=== PATIENT | female | born 1940 | race Caucasian/White ===

== ENCOUNTER → 2017-10-28 | Outpatient (CLI) | payer MEDICARE, OTHER ==
[~2017-10-28] MED LIST: ACET500 PO; AMLO5; AMPDEX10 PO; AMPHETAMINE; ANAS1 PO; AZIT250 PO; Anastrozole1 GM PO; Augmentin 875-1 EACH PO; BUPR100; BUPR100 PO; CLIN300 PO; CLON.1 PO; CLON.2; CLON.2 PO; CYCL10 PO; DIVA125EC; DIVA250EC PO; Duoneb 2.5-0.5 M3 ML INH; FLUO20; Felodipine ER10 MG PO; Fentanyl1 EAC4 TD; HYDACE5 PO; HYDCHL25; HYOS0.375T PO; IBUP400 PO; KETO10 PO; LEVSOD150 PO; LEVSOD200 PO; LEVSOD75 PO; LEVSOD88 PO; LOSA50 PO; LOSARTAN POTAS100 MG PO; MEPE50 PO; MIRT15 PO; MIRT30ST MM; NAPR500EC PO; NEOSPORIN ANT14.2 GM TOP; PROM25 PO; Prozac20 MG PO; RXCYCL10 PO; RXTRAM50 PO; SOLI5; SOLI5 PO; STOOL SOFTENER100 MG; TOLT2ER; TRAM50 PO; Vesicare10 MG PO; Vibramycin100 MG PO
[2017-10-28 12:40] LABS: BASOPHILS ABSOLUTE AUTO 0.06 K/mm3 (0.00-0.23); BASOPHILS PERCENT AUTO 0 % (0-2); EOSINOPHILS ABSOLUTE AUTO 0.14 K/mm3 (0.00-0.68); EOSINOPHILS PERCENT AUTO 1 % (0-6); Hematocrit 40.4 % (33.0-51.0); Hemoglobin 13.5 g/dL (11.5-16.0); IMMATURE GRAN ABSOLUTE AUTO 0.05 K/mm3 (0.00-0.10); IMMATURE GRAN PERCENT AUTO 0 % (0-1); LYMPHOCYTES ABSOLUTE AUTO 2.34 K/mm3 (0.84-5.20); LYMPHOCYTES PERCENT AUTO 17 % (21-46); MONOCYTES ABSOLUTE AUTO 1.27 K/mm3 (0.16-1.47); MONOCYTES PERCENT AUTO 9 % (4-13); Mean Corpuscular HGB 30.8 pg (26.0-34.0); Mean Corpuscular HGB Conc 33.4 g/dL (31.5-36.5); Mean Corpuscular Volume 92 fL (80-100); Mean Platelet Volume 9.6 fL (9.1-12.4); NEUTROPHILS ABSOLUTE AUTO 9.75 K/mm3 (1.96-9.15); NEUTROPHILS PERCENT AUTO 72 % (41-73); Platelet Count 363 K/mm3 (150-400); RDW Coefficient Variation 13.1 % (11.7-14.2); RDW Standard Deviation 44.2 fL (35.1-46.3); Red Blood Cell Count 4.39 M/mm3 (3.80-5.20); White Blood Cell Count 13.61 K/mm3 (4.00-11.30)
[2017-10-28 12:49] LABS: Albumin, Blood 4.2 g/dL (3.4-5.0); Albumin/Globulin Ratio 1.1 (0.8-1.8); Bilirubin, Total 0.5 mg/dL (0.1-1.0); Bun/Creatinine Ratio 22.9 (12.0-20.0); Calcium, Blood 10.1 mg/dL (8.5-10.1); Creatinine, Blood 1.05 mg/dL (0.40-1.00); Globulin, Blood 3.7 g/dL (2.2-4.0); Potassium, Blood 5.1 mmol/L (3.5-5.5); Total Protein, Blood 7.9 g/dL (6.4-8.2)
== END ==
LOC: LAB SHORT 12:32 → LAB EV 12:32
PROVIDERS: General Practice
DX: J44.9 Chronic obstructive pulmonary disease, unspecified (principal)
CPT/HCPCS: 80053; 85025

== ENCOUNTER 2017-11-25 20:42 | Emergency (ER) | payer MEDICARE, OTHER ==
[~2017-11-25] VITALS: Ht 160 cm; Wt 84.4 kg
[2017-11-25 21:16] LABS: BASOPHILS ABSOLUTE AUTO 0.07 K/mm3 (0.00-0.23); BASOPHILS PERCENT AUTO 1 % (0-2); EOSINOPHILS ABSOLUTE AUTO 0.02 K/mm3 (0.00-0.68); EOSINOPHILS PERCENT AUTO 0 % (0-6); Hematocrit 38.1 % (33.0-51.0); Hemoglobin 12.3 g/dL (11.5-16.0); IMMATURE GRAN PERCENT AUTO 1 % (0-1); LYMPHOCYTES ABSOLUTE AUTO 2.49 K/mm3 (0.84-5.20); LYMPHOCYTES PERCENT AUTO 17 % (21-46); MONOCYTES PERCENT AUTO 16 % (4-13); Mean Corpuscular HGB 30.8 pg (26.0-34.0); Mean Corpuscular HGB Conc 32.3 g/dL (31.5-36.5); Mean Corpuscular Volume 95 fL (80-100); Mean Platelet Volume 9.7 fL (9.1-12.4); NEUTROPHILS PERCENT AUTO 67 % (41-73); Platelet Count 253 K/mm3 (150-400); RDW Coefficient Variation 13.6 % (11.7-14.2); RDW Standard Deviation 48.1 fL (35.1-46.3); White Blood Cell Count 14.88 K/mm3 (4.00-11.30)
[2017-11-25 21:35] LABS: Alanine Aminotransfer (ALT/SGP 36 U/L (12-78); Albumin, Blood 3.8 g/dL (3.4-5.0); Albumin/Globulin Ratio 0.9 (0.8-1.8); Alk Phos 94 U/L (50-136); Anion Gap 10 mmol/L (6-16); Aspartate Aminotrans (AST/SGOT 30 U/L (12-37); Bilirubin, Total 0.6 mg/dL (0.1-1.0); Blood Urea Nitrogen 23 mg/dL (8-24); Bun/Creatinine Ratio 23.2 (12.0-20.0); CO2, Blood 24 mmol/L (21-32); Calcium, Blood 9.6 mg/dL (8.5-10.1); Chloride, Blood 98 mmol/L (98-108); Creatinine, Blood 0.99 mg/dL (0.40-1.00); Globulin, Blood 4.2 g/dL (2.2-4.0); Glomerular Filtration Rate 58 (60-); Glucose, Blood 90 mg/dL (70-99); Potassium, Blood 4.4 mmol/L (3.5-5.5); Sodium, Blood 132 mmol/L (136-145); Troponin I <0.015 ng/mL (0.000-0.040)
[2017-11-26] MEDS ORDERED: Zithromax250 MG PO (00:43)
[2017-11-26] MEDS ORDERED: Prednisone20 MG PO (00:43)
== END 2017-11-26 01:14 | disposition home or self-care (01) ==
LOC: ER 20:42
PROVIDERS: Emergency Medicine
DX: J18.9 Pneumonia, unspecified organism (principal); I10 Essential (primary) hypertension; Z88.0 Allergy status to penicillin; Z88.5 Allergy status to narcotic agent; Z79.899 Other long term (current) drug therapy; Z87.891 Personal history of nicotine dependence
CPT/HCPCS: 36415; 71046; 80053; 83880; 84484; 85025; 93005; 93010; 94640; J0456; J0696; J2930; J7030; J7050

== ENCOUNTER → 2018-06-13 | Outpatient (CLI) | payer MEDICARE, OTHER ==
[~2018-06-13] MED LIST changes: +PRED10 PO; +Prednisone20 MG PO; +Zithromax250 MG PO
[2018-06-20 15:08] LABS: FENTANYL Positive (.); FENTANYL CONFIRM 7742 pg/mL (Cutoff=500); FENTANYL/NORFENTANYL Positive (.); NORFENTANYL Positive (.); NORFENTANYL CONFIRM >90000 pg/mL (Cutoff=500)
== END | disposition home or self-care (01) ==
LOC: LAB SHORT 15:00 → LAB EV 15:00
PROVIDERS: Nurse Practitioner Family
DX: G89.4 Chronic pain syndrome (principal); Z79.899 Other long term (current) drug therapy
CPT/HCPCS: G0480

== ENCOUNTER 2020-08-08 14:37 | Emergency (ER) | payer MEDICARE, BC ==
[~2020-08-08] VITALS: Ht 162.6 cm; Wt 68.8 kg
[2020-08-08 15:05] LABS: Calcium, Ionized (POC) 1.25 mmol/L (1.10-1.46); Chloride (POC) 104 mmol/L (98-108); Creatinine (POC) 1.1 mg/dL (0.6-1.0); Glucose (ISTAT POC) 86 mg/dL (70-99); Hemoglobin (POC) 13.9 g/dL (12.0-16.0); Potassium (POC) 4.4 mmol/L (3.5-5.5); Sodium (POC) 140 mmol/L (135-148); Total CO2 (POC) 28 mmol/L (21-32)
[2020-08-08] MEDS ORDERED: METOPROLOL SUCC25 MG PO (15:18)
[2020-08-08] MEDS ORDERED: TRAM50 PO (15:18)
== END 2020-08-08 16:20 | disposition short-term general hospital (02) ==
LOC: ER 14:37
PROVIDERS: Emergency Medicine
DX: I24.9 Acute ischemic heart disease, unspecified (principal); I16.0 Hypertensive urgency; I10 Essential (primary) hypertension; Z88.0 Allergy status to penicillin; Z88.5 Allergy status to narcotic agent; Z79.899 Other long term (current) drug therapy; Z87.891 Personal history of nicotine dependence
CPT/HCPCS: 36415; 80047; 85014; 93005; 93010; 96374; 99285-25; A9270; J1644; J2060; J7030; J7050

== ENCOUNTER 2020-08-12 05:06 | Emergency (ER) | payer MEDICARE, BC ==
[~2020-08-12] VITALS: Ht 162.6 cm; Wt 59.0 kg
[~2020-08-12 05:06] MED LIST changes: +METOPROLOL SUCC25 MG PO
[2020-08-12 05:36] LABS: BASOPHILS ABSOLUTE AUTO 0.05 K/mm3 (0.00-0.23); BASOPHILS PERCENT AUTO 1 % (0-2); EOSINOPHILS ABSOLUTE AUTO 0.33 K/mm3 (0.00-0.68); EOSINOPHILS PERCENT AUTO 4 % (0-6); Hematocrit 39.6 % (33.0-51.0); Hemoglobin 13.4 g/dL (11.5-16.0); IMMATURE GRAN ABSOLUTE AUTO 0.03 K/mm3 (0.00-0.10); IMMATURE GRAN PERCENT AUTO 0 % (0-1); LYMPHOCYTES ABSOLUTE AUTO 2.21 K/mm3 (0.84-5.20); LYMPHOCYTES PERCENT AUTO 26 % (21-46); MONOCYTES ABSOLUTE AUTO 0.97 K/mm3 (0.16-1.47); MONOCYTES PERCENT AUTO 11 % (4-13); Mean Corpuscular HGB 32.5 pg (26.0-34.0); Mean Corpuscular HGB Conc 33.8 g/dL (31.5-36.5); Mean Corpuscular Volume 96 fL (80-100); Mean Platelet Volume 9.9 fL (9.1-12.4); NEUTROPHILS ABSOLUTE AUTO 4.97 K/mm3 (1.96-9.15); NEUTROPHILS PERCENT AUTO 58 % (41-73); Platelet Count 340 K/mm3 (150-400); RDW Coefficient Variation 12.8 % (11.7-14.2); RDW Standard Deviation 45.7 fL (35.1-46.3); Red Blood Cell Count 4.12 M/mm3 (3.80-5.20); White Blood Cell Count 8.56 K/mm3 (4.00-11.30)
[2020-08-12] MEDS ORDERED: Aspir 8181 MG PO (05:50)
[2020-08-12] MEDS ORDERED: ANASTROZOLE1 M2 PO (05:50)
[2020-08-12] MEDS ORDERED: ATOR80 PO (05:51)
[2020-08-12] MEDS ORDERED: LEVSOD100 PO (05:51)
[2020-08-12] MEDS ORDERED: CLOP75 PO (05:51)
[2020-08-12] MEDS ORDERED: NYSTRIT TOP (05:52)
[2020-08-12] MEDS ORDERED: Triamcinolone A15 G3 TOP (05:53)
[2020-08-12 06:18] LABS: Albumin, Blood 3.4 g/dL (3.4-5.0); Albumin/Globulin Ratio 0.8 (0.8-1.8); Bilirubin, Total 0.4 mg/dL (0.1-1.0); Bun/Creatinine Ratio 25.2 (12.0-20.0); Calcium, Blood 9.9 mg/dL (8.5-10.1); Creatinine, Blood 1.15 mg/dL (0.40-1.00); Globulin, Blood 4.4 g/dL (2.2-4.0); Potassium, Blood 4.8 mmol/L (3.5-5.5); Total Protein, Blood 7.8 g/dL (6.4-8.2)
[2020-08-12 06:25] LABS: Troponin I 6.14 ng/mL (0.000-0.040)
[2020-08-12] MEDS ORDERED: Nitrostat0.4 MG SL (08:45)
[2020-08-12] MEDS ORDERED: Isosorbide Mono30 MG PO (08:45)
== END 2020-08-12 09:12 | disposition home or self-care (01) ==
LOC: ER 05:06
PROVIDERS: Emergency Medicine
DX: R07.9 Chest pain, unspecified (principal); I25.10 Atherosclerotic heart disease of native coronary artery without angina pectoris; Z79.82 Long term (current) use of aspirin; Z79.02 Long term (current) use of antithrombotics/antiplatelets; Z79.899 Other long term (current) drug therapy
CPT/HCPCS: 36415; 71045; 80053; 83690; 84484; 85025; 93005; 93010; 99285-25; A9270

== ENCOUNTER → 2020-12-25 | Outpatient (CLI) | payer MEDICARE, BC ==
[~2020-12-25] MED LIST changes: +ANASTROZOLE1 M2 PO; +ATOR80 PO; +Aspir 8181 MG PO; +CLOP75 PO; +Isosorbide Mono30 MG PO; +LEVSOD100 PO; +NYSTRIT TOP; +Nitrostat0.4 MG SL; +Triamcinolone A15 G3 TOP
[2020-12-25 12:41] LABS: BASOPHILS ABSOLUTE AUTO 0.06 K/mm3 (0.00-0.23); BASOPHILS PERCENT AUTO 1 % (0-2); EOSINOPHILS ABSOLUTE AUTO 0.27 K/mm3 (0.00-0.68); EOSINOPHILS PERCENT AUTO 4 % (0-6); Hematocrit 42.7 % (33.0-51.0); Hemoglobin 14.4 g/dL (11.5-16.0); IMMATURE GRAN ABSOLUTE AUTO 0.02 K/mm3 (0.00-0.10); IMMATURE GRAN PERCENT AUTO 0 % (0-1); LYMPHOCYTES ABSOLUTE AUTO 2.17 K/mm3 (0.84-5.20); LYMPHOCYTES PERCENT AUTO 35 % (21-46); MONOCYTES ABSOLUTE AUTO 0.64 K/mm3 (0.16-1.47); MONOCYTES PERCENT AUTO 10 % (4-13); Mean Corpuscular HGB 32.3 pg (26.0-34.0); Mean Corpuscular HGB Conc 33.7 g/dL (31.5-36.5); Mean Corpuscular Volume 96 fL (80-100); Mean Platelet Volume 10.1 fL (9.1-12.4); NEUTROPHILS ABSOLUTE AUTO 2.98 K/mm3 (1.96-9.15); NEUTROPHILS PERCENT AUTO 49 % (41-73); Platelet Count 334 K/mm3 (150-400); RDW Coefficient Variation 12.9 % (11.7-14.2); RDW Standard Deviation 45.5 fL (35.1-46.3); Red Blood Cell Count 4.46 M/mm3 (3.80-5.20); White Blood Cell Count 6.14 K/mm3 (4.00-11.30)
[2020-12-25 13:03] LABS: Alanine Aminotransfer (ALT/SGP 24 U/L (12-78); Albumin, Blood 4.1 g/dL (3.4-5.0); Alk Phos 135 U/L (40-126); Anion Gap 12 mmol/L (6-16); Aspartate Aminotrans (AST/SGOT 27 U/L (12-37); Bilirubin, Total 0.4 mg/dL (0.1-1.0); Blood Urea Nitrogen 30 mg/dL (8-24); Bun/Creatinine Ratio 21.9 (12.0-20.0); CO2, Blood 25 mmol/L (21-32); CPK Creatine Kinase 97 U/L (26-192); Calcium, Blood 9.8 mg/dL (8.5-10.1); Chloride, Blood 105 mmol/L (98-108); Creatinine, Blood 1.37 mg/dL (0.40-1.00); Free Thyroxine 1.69 ng/dL (0.70-1.60); Globulin, Blood 4.1 g/dL (2.2-4.0); Glomerular Filtration Rate 37 (60-); Glucose, Blood 96 mg/dL (70-99); Potassium, Blood 4.9 mmol/L (3.5-5.5); Sodium, Blood 142 mmol/L (136-145); Thyroid Stimulating Hormone 2.515 uIU/mL (0.360-4.800); Total Protein, Blood 8.2 g/dL (6.4-8.2)
[2020-12-25 13:04] LABS: Troponin I <0.017 ng/mL (0.000-0.040)
== END | disposition home or self-care (01) ==
LOC: LAB 12:32 → LAB EV 12:32 → LAB SHORT 12:32
PROVIDERS: General Practice
DX: I25.110 Atherosclerotic heart disease of native coronary artery with unstable angina pectoris (principal); R53.81 Other malaise
CPT/HCPCS: 80053; 82550; 84439; 84443; 84484; 85025

== ENCOUNTER 2021-11-01 20:36 | Observation (INO) | payer MEDICARE, BC ==
[~2021-11-01] VITALS: Ht 162.6 cm; Wt 49.2 kg
[~2021-11-01 20:36] MED LIST changes: +FURO20 PO; +KETOROLAC TROMET5 M3 OP; +POLYMYXIN B-TMP10 ML LEFTEYE; +POTA10T PO; +PRED FORTE5 M1 LEFTEYE; +Ventolin/Prove6.7 GM INH
[2021-11-01 21:31] LABS: BASOPHILS ABSOLUTE AUTO 0.05 K/mm3 (0.00-0.23); BASOPHILS PERCENT AUTO 1 % (0-2); EOSINOPHILS ABSOLUTE AUTO 0.25 K/mm3 (0.00-0.68); EOSINOPHILS PERCENT AUTO 4 % (0-6); Hematocrit 43.5 % (33.0-51.0); Hemoglobin 14.5 g/dL (11.5-16.0); IMMATURE GRAN ABSOLUTE AUTO 0.02 K/mm3 (0.00-0.10); IMMATURE GRAN PERCENT AUTO 0 % (0-1); LYMPHOCYTES ABSOLUTE AUTO 2.01 K/mm3 (0.84-5.20); LYMPHOCYTES PERCENT AUTO 29 % (21-46); MONOCYTES PERCENT AUTO 14 % (4-13); Mean Corpuscular HGB Conc 33.3 g/dL (31.5-36.5); Mean Corpuscular Volume 99 fL (80-100); Mean Platelet Volume 10.1 fL (9.1-12.4); NEUTROPHILS ABSOLUTE AUTO 3.61 K/mm3 (1.96-9.15); NEUTROPHILS PERCENT AUTO 52 % (41-73); Platelet Count 375 K/mm3 (150-400); RDW Coefficient Variation 12.3 % (11.7-14.2); RDW Standard Deviation 44.8 fL (35.1-46.3); Red Blood Cell Count 4.39 M/mm3 (3.80-5.20); White Blood Cell Count 6.94 K/mm3 (4.00-11.30)
[2021-11-01 21:54] LABS: Alanine Aminotransfer (ALT/SGP 12 U/L (12-78); Albumin, Blood 3.7 g/dL (3.4-5.0); Albumin/Globulin Ratio 0.8 (0.8-1.8); Alk Phos 101 U/L (50-136); Anion Gap 8 mmol/L (6-16); Aspartate Aminotrans (AST/SGOT 21 U/L (12-37); Bilirubin, Total 0.3 mg/dL (0.1-1.0); Blood Urea Nitrogen 42 mg/dL (8-24); Bun/Creatinine Ratio 36.5 (12.0-20.0); CO2, Blood 27 mmol/L (21-32); Calcium, Blood 10.1 mg/dL (8.5-10.1); Chloride, Blood 107 mmol/L (98-108); Creatinine, Blood 1.15 mg/dL (0.40-1.00); Globulin, Blood 4.4 g/dL (2.2-4.0); Glomerular Filtration Rate 48 (60-); Glucose, Blood 98 mg/dL (70-99); Potassium, Blood 4.3 mmol/L (3.5-5.5); Sodium, Blood 142 mmol/L (136-145); Total Protein, Blood 8.1 g/dL (6.4-8.2)
--- NOTE | 2021-11-02 00:38 | NUR ---
transfer report from Eliza FUNK RN on 81 year old Female DC from [facility] for CHF 4 days ago. who comes to ER with SOB & edema elevated troponin & CAD, PVD, DDD. Await admission
[2021-11-02] MEDS ORDERED: FENTANYL PATCH (00:52)
[2021-11-02 01:13] LABS: CHOL/HDL RATIO 3.5; Cholesterol 223 mg/dL (50-200); Free Thyroxine 1.59 ng/dL (0.70-1.60); HDL Cholesterol 64 mg/dL (>39); Low Density Lipoprotein Chol 129 mg/dL (0-110); Triglycerides 148 mg/dL (30-160); Very Low Density Lipoprot Chol 29 mg/dL (6-32)
[2021-11-02] MEDS ORDERED: ISOSORBIDE MONO30 MG PO (02:30)
[2021-11-02] MEDS ORDERED: PRED FORTE5 M1 BOTHEYES (02:31)
[2021-11-02] MEDS ORDERED: KETOROLAC TROMET5 M3 LEFTEYE (02:33)
[2021-11-02 05:14] LABS: BASOPHILS ABSOLUTE AUTO 0.05 K/mm3 (0.00-0.23); BASOPHILS PERCENT AUTO 1 % (0-2); EOSINOPHILS ABSOLUTE AUTO 0.28 K/mm3 (0.00-0.68); EOSINOPHILS PERCENT AUTO 3 % (0-6); Hematocrit 43.8 % (33.0-51.0); Hemoglobin 14.4 g/dL (11.5-16.0); IMMATURE GRAN ABSOLUTE AUTO 0.02 K/mm3 (0.00-0.10); IMMATURE GRAN PERCENT AUTO 0 % (0-1); LYMPHOCYTES ABSOLUTE AUTO 1.72 K/mm3 (0.84-5.20); LYMPHOCYTES PERCENT AUTO 20 % (21-46); MONOCYTES ABSOLUTE AUTO 1.21 K/mm3 (0.16-1.47); MONOCYTES PERCENT AUTO 14 % (4-13); Mean Corpuscular HGB 32.7 pg (26.0-34.0); Mean Corpuscular HGB Conc 32.9 g/dL (31.5-36.5); Mean Corpuscular Volume 100 fL (80-100); Mean Platelet Volume 10.1 fL (9.1-12.4); NEUTROPHILS ABSOLUTE AUTO 5.33 K/mm3 (1.96-9.15); NEUTROPHILS PERCENT AUTO 62 % (41-73); Platelet Count 342 K/mm3 (150-400); RDW Coefficient Variation 12.2 % (11.7-14.2); RDW Standard Deviation 44.5 fL (35.1-46.3); White Blood Cell Count 8.61 K/mm3 (4.00-11.30)
[2021-11-02 06:00] LABS: Albumin, Blood 3.4 g/dL (3.4-5.0); Albumin/Globulin Ratio 0.8 (0.8-1.8); Bilirubin, Total 0.4 mg/dL (0.1-1.0); Bun/Creatinine Ratio 33.6 (12.0-20.0); Creatinine, Blood 1.16 mg/dL (0.40-1.00); Globulin, Blood 4.1 g/dL (2.2-4.0); Potassium, Blood 3.9 mmol/L (3.5-5.5); Total Protein, Blood 7.5 g/dL (6.4-8.2)
--- NOTE | 2021-11-02 06:48 | NUR ---
81 year old Female with hx CAD with cardiac stent placed about 3 years ago per PT is poor historian with variable recall of health history. Elevated BP with multiple antihypertensives & on tele monitoring NSR. PT had CO bilat jaw pain requests nitro & MD Santiago Jimenez updated. MD declined nitro & PT said pain in jaws resolved. BP finally normalized & PT rested. Recent lt eye cataract removal with PT to ask Spouse to bring in current rx. Continue to assess & educate on CHF.
--- NOTE | 2021-11-02 08:33 | NUR ---
Echocardiogram completed.
[2021-11-02] MEDS ORDERED: ABILIFY MYCITE20 M2 PO (14:22)
[2021-11-02] MEDS ORDERED: ATORVASTATIN CA80 M1 PO (14:23)
[2021-11-02] MEDS ORDERED: BUPROPION HCL200 M2 PO (14:24)
[2021-11-02] MEDS ORDERED: COREG25 MG PO (14:25)
[2021-11-02] MEDS ORDERED: DEPAKOTE500 M1 PO (14:27)
[2021-11-02] MEDS ORDERED: FENTANYL1 EA12 TOP (14:28)
[2021-11-02] MEDS ORDERED: FURO20 PO (14:29)
[2021-11-02] MEDS ORDERED: EUTHYROX100 MCG PO (14:30)
[2021-11-02] MEDS ORDERED: LOSARTAN POTAS100 M1 PO (14:31)
[2021-11-02] MEDS ORDERED: METO25ER PO (14:32)
[2021-11-02] MEDS ORDERED: NYAMYC15 G1 TOP (14:34)
[2021-11-02] MEDS ORDERED: KLOR-CON 1010 ME1 PO (14:35)
--- NOTE | 2021-11-02 15:54 | NUR ---
PATIENT D/C'D HOME WITH HOME HEALTH. DC INSTRUCTIONS AND EDUCATION DISCUSSED WITH PATIENT AND HER AND COPY PROVIDED. HOME HEALTH WILL CONTACT PATIENT FOR APPOINTMENT. F/U APPOINTMENT WITH PCP WAS MADE. PATIENT DENIES ANY FURTHER QUESTIONS OR CONCERNS.
== END 2021-11-02 15:54 | disposition home health service (06) ==
LOC: ER 20:36 → MEDS 20:37
PROVIDERS: Physician Assistant; Student in an Organized Health Care Education/Training Program; ADMIT Internal Medicine
DX: I13.0 Hypertensive heart and chronic kidney disease with heart failure and stage 1 through stage 4 chronic kidney disease, or unspecified chronic kidney disease (principal); I50.9 Heart failure, unspecified; E03.9 Hypothyroidism, unspecified; I25.2 Old myocardial infarction; I25.10 Atherosclerotic heart disease of native coronary artery without angina pectoris; Z96.653 Presence of artificial knee joint, bilateral; Z79.82 Long term (current) use of aspirin; Z88.0 Allergy status to penicillin; Z88.5 Allergy status to narcotic agent; Z95.5 Presence of coronary angioplasty implant and graft; Z79.01 Long term (current) use of anticoagulants; Z87.891 Personal history of nicotine dependence; Z66 Do not resuscitate; N18.9 Chronic kidney disease, unspecified; J42 Unspecified chronic bronchitis; Z98.1 Arthrodesis status; I08.3 Combined rheumatic disorders of mitral, aortic and tricuspid valves
CPT/HCPCS: 36415; 71045; 80053; 80061; 83880; 84439; 84443; 84484; 85025; 93005; 93010; 93306; 97110; 97116; 97162; 99285-25; A9270; G0378; J0360; J1650; J1940

== ENCOUNTER 2021-11-07 10:05 | Emergency (ER) | payer MEDICARE, BC ==
[~2021-11-07] VITALS: Ht 162.6 cm; Wt 66.7 kg
[~2021-11-07 10:05] MED LIST changes: +ABILIFY MYCITE20 M2 PO; +ATORVASTATIN CA80 M1 PO; +BUPROPION HCL200 M2 PO; +COREG25 MG PO; +DEPAKOTE500 M1 PO; +EUTHYROX100 MCG PO; +FENTANYL PATCH; +FENTANYL1 EA12 TOP; +ISOSORBIDE MONO30 MG PO; +KETOROLAC TROMET5 M3 LEFTEYE; +KLOR-CON 1010 ME1 PO; +LOSARTAN POTAS100 M1 PO; +METO25ER PO; +NYAMYC15 G1 TOP; +PRED FORTE5 M1 BOTHEYES
[2021-11-07 10:59] LABS: BASOPHILS ABSOLUTE AUTO 0.07 K/mm3 (0.00-0.23); BASOPHILS PERCENT AUTO 1 % (0-2); EOSINOPHILS ABSOLUTE AUTO 0.27 K/mm3 (0.00-0.68); EOSINOPHILS PERCENT AUTO 3 % (0-6); Hemoglobin 14.1 g/dL (11.5-16.0); IMMATURE GRAN ABSOLUTE AUTO 0.03 K/mm3 (0.00-0.10); IMMATURE GRAN PERCENT AUTO 0 % (0-1); LYMPHOCYTES ABSOLUTE AUTO 2.07 K/mm3 (0.84-5.20); LYMPHOCYTES PERCENT AUTO 24 % (21-46); MONOCYTES ABSOLUTE AUTO 1.07 K/mm3 (0.16-1.47); MONOCYTES PERCENT AUTO 13 % (4-13); Mean Corpuscular HGB 33.6 pg (26.0-34.0); Mean Corpuscular HGB Conc 31.3 g/dL (31.5-36.5); Mean Corpuscular Volume 107 fL (80-100); Mean Platelet Volume 10.8 fL (9.1-12.4); NEUTROPHILS ABSOLUTE AUTO 5.08 K/mm3 (1.96-9.15); NEUTROPHILS PERCENT AUTO 59 % (41-73); Platelet Count 276 K/mm3 (150-400); RDW Standard Deviation 47.6 fL (35.1-46.3); White Blood Cell Count 8.59 K/mm3 (4.00-11.30)
[2021-11-07 11:18] LABS: Albumin, Blood 3.3 g/dL (3.4-5.0); Albumin/Globulin Ratio 0.9 (0.8-1.8); Bilirubin, Total 0.4 mg/dL (0.1-1.0); Bun/Creatinine Ratio 27.8 (12.0-20.0); Calcium, Blood 9.6 mg/dL (8.5-10.1); Creatinine, Blood 1.15 mg/dL (0.40-1.00); Globulin, Blood 3.8 g/dL (2.2-4.0); Potassium, Blood 5.1 mmol/L (3.5-5.5); Total Protein, Blood 7.1 g/dL (6.4-8.2)
== END 2021-11-07 13:41 | disposition home or self-care (01) ==
LOC: ER 10:05
PROVIDERS: Emergency Medicine
DX: R55 Syncope and collapse (principal); F41.9 Anxiety disorder, unspecified; I11.0 Hypertensive heart disease with heart failure; I50.9 Heart failure, unspecified; J44.9 Chronic obstructive pulmonary disease, unspecified; I25.2 Old myocardial infarction; Z88.0 Allergy status to penicillin; Z88.5 Allergy status to narcotic agent; Z79.899 Other long term (current) drug therapy
CPT/HCPCS: 71045; 80053; 82947; 84484; 85025; 93005; 93010

== ENCOUNTER 2021-12-06 16:04 | Inpatient (IN) | payer MEDICARE, BC ==
[~2021-12-06] VITALS: Ht 162.6 cm; Wt 63.9 kg
[2021-12-06 22:45] LABS: BASOPHILS ABSOLUTE AUTO 0.07 K/mm3 (0.00-0.23); BASOPHILS PERCENT AUTO 1 % (0-2); EOSINOPHILS ABSOLUTE AUTO 0.46 K/mm3 (0.00-0.68); EOSINOPHILS PERCENT AUTO 5 % (0-6); Hemoglobin 13.9 g/dL (11.5-16.0); IMMATURE GRAN ABSOLUTE AUTO 0.03 K/mm3 (0.00-0.10); IMMATURE GRAN PERCENT AUTO 0 % (0-1); LYMPHOCYTES ABSOLUTE AUTO 2.27 K/mm3 (0.84-5.20); LYMPHOCYTES PERCENT AUTO 26 % (21-46); MONOCYTES ABSOLUTE AUTO 0.88 K/mm3 (0.16-1.47); MONOCYTES PERCENT AUTO 10 % (4-13); Mean Corpuscular HGB 32.9 pg (26.0-34.0); Mean Corpuscular HGB Conc 33.1 g/dL (31.5-36.5); Mean Corpuscular Volume 100 fL (80-100); Mean Platelet Volume 10.1 fL (9.1-12.4); NEUTROPHILS ABSOLUTE AUTO 5.03 K/mm3 (1.96-9.15); NEUTROPHILS PERCENT AUTO 58 % (41-73); Platelet Count 238 K/mm3 (150-400); RDW Coefficient Variation 12.2 % (11.7-14.2); RDW Standard Deviation 44.6 fL (35.1-46.3); Red Blood Cell Count 4.22 M/mm3 (3.80-5.20); White Blood Cell Count 8.74 K/mm3 (4.00-11.30)
[2021-12-06 23:12] LABS: Bun/Creatinine Ratio 20.2 (12.0-20.0); Calcium, Blood 9.6 mg/dL (8.5-10.1); Creatinine, Blood 1.63 mg/dL (0.40-1.00); Potassium, Blood 4.9 mmol/L (3.5-5.5)
[2021-12-06 23:29] LABS: Influenza A, PCR NEGATIVE (NEGATIVE); Influenza B, PCR NEGATIVE (NEGATIVE); Resp Syncytial Virus, PCR NEGATIVE (NEGATIVE); SARS-Cov-2 (COVID-19) PCR, MMC NEGATIVE (NEGATIVE)
[2021-12-07] MEDS ORDERED: CLOP75 PO (00:39)
[2021-12-07] MEDS ORDERED: FURO20 PO (00:41)
[2021-12-07] MEDS ORDERED: PRIM250 PO (00:42)
[2021-12-07] MEDS ORDERED: EZET10 PO (00:45)
[2021-12-07 05:35] LABS: BASOPHILS ABSOLUTE AUTO 0.07 K/mm3 (0.00-0.23); BASOPHILS PERCENT AUTO 1 % (0-2); EOSINOPHILS ABSOLUTE AUTO 0.45 K/mm3 (0.00-0.68); EOSINOPHILS PERCENT AUTO 6 % (0-6); Hematocrit 39.7 % (33.0-51.0); Hemoglobin 12.8 g/dL (11.5-16.0); IMMATURE GRAN ABSOLUTE AUTO 0.03 K/mm3 (0.00-0.10); IMMATURE GRAN PERCENT AUTO 0 % (0-1); LYMPHOCYTES ABSOLUTE AUTO 2.11 K/mm3 (0.84-5.20); LYMPHOCYTES PERCENT AUTO 29 % (21-46); MONOCYTES ABSOLUTE AUTO 0.88 K/mm3 (0.16-1.47); MONOCYTES PERCENT AUTO 12 % (4-13); Mean Corpuscular HGB 32.6 pg (26.0-34.0); Mean Corpuscular HGB Conc 32.2 g/dL (31.5-36.5); Mean Corpuscular Volume 101 fL (80-100); Mean Platelet Volume 10.1 fL (9.1-12.4); NEUTROPHILS ABSOLUTE AUTO 3.65 K/mm3 (1.96-9.15); NEUTROPHILS PERCENT AUTO 51 % (41-73); Platelet Count 224 K/mm3 (150-400); RDW Standard Deviation 44.5 fL (35.1-46.3); Red Blood Cell Count 3.93 M/mm3 (3.80-5.20); White Blood Cell Count 7.19 K/mm3 (4.00-11.30)
[2021-12-07 07:24] LABS: Albumin/Globulin Ratio 0.8 (0.8-1.8); Bilirubin, Total 0.2 mg/dL (0.1-1.0); Bun/Creatinine Ratio 20.6 (12.0-20.0); Calcium, Blood 9.4 mg/dL (8.5-10.1); Creatinine, Blood 1.55 mg/dL (0.40-1.00); Globulin, Blood 3.6 g/dL (2.2-4.0); Potassium, Blood 4.3 mmol/L (3.5-5.5); Total Protein, Blood 6.6 g/dL (6.4-8.2)
== END 2021-12-08 14:17 | disposition home health service (06) | DRG 554 ==
LOC: ER 16:04 → SURS 23:03
PROVIDERS: Emergency Medicine; ADMIT Internal Medicine
DX: M16.11 Unilateral primary osteoarthritis, right hip (principal); I13.0 Hypertensive heart and chronic kidney disease with heart failure and stage 1 through stage 4 chronic kidney disease, or unspecified chronic kidney disease; Z20.822 Contact with and (suspected) exposure to COVID-19; F41.9 Anxiety disorder, unspecified; J44.9 Chronic obstructive pulmonary disease, unspecified; G89.29 Other chronic pain; G25.0 Essential tremor; M54.9 Dorsalgia, unspecified; I50.9 Heart failure, unspecified; N18.2 Chronic kidney disease, stage 2 (mild); E03.9 Hypothyroidism, unspecified; Z96.653 Presence of artificial knee joint, bilateral; Z85.3 Personal history of malignant neoplasm of breast; Z87.19 Personal history of other diseases of the digestive system; I25.2 Old myocardial infarction; Z90.12 Acquired absence of left breast and nipple; Z98.890 Other specified postprocedural states; Z88.0 Allergy status to penicillin; Z88.5 Allergy status to narcotic agent; Z88.6 Allergy status to analgesic agent; Z88.8 Allergy status to other drugs, medicaments and biological substances; Z79.82 Long term (current) use of aspirin; Z79.899 Other long term (current) drug therapy
CPT/HCPCS: 0241U; 36415; 72192; 73502; 80048; 80053; 83880; 85025; 94760; 97116; 97162; 97167; 97530; 99285-25; A9270; J3010; J7040

== ENCOUNTER 2021-12-18 14:55 | Emergency (ER) | payer MEDICARE, BC ==
[~2021-12-18] VITALS: Ht 162.6 cm; Wt 72.6 kg
[~2021-12-18 14:55] MED LIST changes: +EZET10 PO; +PRIM250 PO
[2021-12-18 15:22] LABS: BASOPHILS ABSOLUTE AUTO 0.06 K/mm3 (0.00-0.23); BASOPHILS PERCENT AUTO 1 % (0-2); EOSINOPHILS ABSOLUTE AUTO 0.31 K/mm3 (0.00-0.68); EOSINOPHILS PERCENT AUTO 6 % (0-6); Hematocrit 34.9 % (33.0-51.0); Hemoglobin 11.7 g/dL (11.5-16.0); IMMATURE GRAN ABSOLUTE AUTO 0.02 K/mm3 (0.00-0.10); IMMATURE GRAN PERCENT AUTO 0 % (0-1); LYMPHOCYTES ABSOLUTE AUTO 1.66 K/mm3 (0.84-5.20); LYMPHOCYTES PERCENT AUTO 30 % (21-46); MONOCYTES ABSOLUTE AUTO 0.71 K/mm3 (0.16-1.47); MONOCYTES PERCENT AUTO 13 % (4-13); Mean Corpuscular HGB 32.6 pg (26.0-34.0); Mean Corpuscular HGB Conc 33.5 g/dL (31.5-36.5); Mean Corpuscular Volume 97 fL (80-100); NEUTROPHILS ABSOLUTE AUTO 2.77 K/mm3 (1.96-9.15); NEUTROPHILS PERCENT AUTO 50 % (41-73); Platelet Count 347 K/mm3 (150-400); RDW Coefficient Variation 12.5 % (11.7-14.2); RDW Standard Deviation 44.2 fL (35.1-46.3); Red Blood Cell Count 3.59 M/mm3 (3.80-5.20); White Blood Cell Count 5.53 K/mm3 (4.00-11.30)
[2021-12-18 15:49] LABS: Source, Urine Fem Cath
[2021-12-18 16:03] LABS: Alanine Aminotransfer (ALT/SGP 23 U/L (12-78); Albumin, Blood 2.8 g/dL (3.4-5.0); Albumin/Globulin Ratio 0.7 (0.8-1.8); Alk Phos 136 U/L (50-136); Anion Gap 6 mmol/L (6-16); Aspartate Aminotrans (AST/SGOT 41 U/L (12-37); Bilirubin, Total 0.3 mg/dL (0.1-1.0); Blood Urea Nitrogen 21 mg/dL (8-24); Bun/Creatinine Ratio 19.8 (12.0-20.0); CO2, Blood 27 mmol/L (21-32); Calcium, Blood 9.7 mg/dL (8.5-10.1); Chloride, Blood 105 mmol/L (98-108); Creatinine, Blood 1.06 mg/dL (0.40-1.00); Ethanol (Alcohol), Blood, Med <3 mg/dL; Glomerular Filtration Rate 53 (60-); Glucose, Blood 76 mg/dL (70-99); Potassium, Blood 4.9 mmol/L (3.5-5.5); Sodium, Blood 138 mmol/L (136-145); Total Protein, Blood 6.8 g/dL (6.4-8.2)
[2021-12-18 16:05] LABS: Appearance, Urine Clear (Clear); Bilirubin, Urine Neg (Neg); Blood, Urine Neg (Neg); Color, Urine Yellow (P-Yellow); Glucose Qualitative, Urine Neg (Neg); Ketones, Urine Neg (Neg); Leukocyte Esterase, Urine Neg (Neg); Nitrite, Urine Neg (Neg); Protein, Urine Neg (Neg); Specific Gravity, Urine 1.015 (1.003-1.022); Urobilinogen, Urine NORM (Normal)
[2021-12-18 16:24] LABS: U Amphetamine Screen Not Detected; U Barbituate Screen DETECTED; U Benzodiazapine Screen Not Detected; U Buprenorphine Screen Not Detected; U Cannabinoids Screen Not Detected; U Cocaine Screen Not Detected; U Methadone Screen Not Detected; U Methamphetamine Screen Not Detected; U Opiates Screen Not Detected; U Oxycodone Screen Not Detected; U Phencyclidine Screen Not Detected; U Propoxyphene Screen Not Detected
[2021-12-18 18:00] LABS: Calcium, Ionized (POC) 1.27 mmol/L (1.10-1.46); Chloride (POC) 101 mmol/L (98-108); Creatinine (POC) 1.1 mg/dL (0.6-1.0); Glucose (ISTAT POC) 216 mg/dL (70-99); Hemoglobin (POC) 11.2 g/dL (12.0-16.0); Potassium (POC) 4.5 mmol/L (3.5-5.5); Sodium (POC) 135 mmol/L (135-148); Total CO2 (POC) 24 mmol/L (21-32)
[2021-12-19] MEDS ORDERED: KETOROLAC TROMET5 M3 BOTHEYES (23:17)
[2021-12-19] MEDS ORDERED: PRED FORTE5 M1 BOTHEYES (23:20)
[2021-12-19] MEDS ORDERED: POLYMYXIN B-TMP10 ML BOTHEYES (23:20)
== END 2021-12-18 20:20 | disposition home or self-care (01) ==
LOC: ER 14:55
PROVIDERS: Emergency Medicine
DX: R41.0 Disorientation, unspecified (principal); R41.82 Altered mental status, unspecified; I11.0 Hypertensive heart disease with heart failure; I50.9 Heart failure, unspecified; J44.9 Chronic obstructive pulmonary disease, unspecified; E03.9 Hypothyroidism, unspecified; Z88.0 Allergy status to penicillin; Z88.5 Allergy status to narcotic agent; Z79.899 Other long term (current) drug therapy
CPT/HCPCS: 51701; 70450; 80047; 80053; 81003; 82947; 85014; 85025; G0480; J7060

== ENCOUNTER 2021-12-19 15:26 | Inpatient (IN) | payer MEDICARE, BC ==
[~2021-12-19] VITALS: Ht 162.6 cm; Wt 70.0 kg
[2021-12-19 18:31] LABS: BASOPHILS ABSOLUTE AUTO 0.05 K/mm3 (0.00-0.23); BASOPHILS PERCENT AUTO 1 % (0-2); EOSINOPHILS ABSOLUTE AUTO 0.17 K/mm3 (0.00-0.68); EOSINOPHILS PERCENT AUTO 2 % (0-6); Hematocrit 40.5 % (33.0-51.0); Hemoglobin 12.6 g/dL (11.5-16.0); IMMATURE GRAN ABSOLUTE AUTO 0.02 K/mm3 (0.00-0.10); IMMATURE GRAN PERCENT AUTO 0 % (0-1); LYMPHOCYTES ABSOLUTE AUTO 1.93 K/mm3 (0.84-5.20); LYMPHOCYTES PERCENT AUTO 24 % (21-46); MONOCYTES ABSOLUTE AUTO 1.28 K/mm3 (0.16-1.47); MONOCYTES PERCENT AUTO 16 % (4-13); Mean Corpuscular HGB 31.7 pg (26.0-34.0); Mean Corpuscular HGB Conc 31.1 g/dL (31.5-36.5); Mean Platelet Volume 9.5 fL (9.1-12.4); NEUTROPHILS ABSOLUTE AUTO 4.47 K/mm3 (1.96-9.15); NEUTROPHILS PERCENT AUTO 56 % (41-73); Platelet Count 389 K/mm3 (150-400); RDW Coefficient Variation 12.4 % (11.7-14.2); RDW Standard Deviation 46.9 fL (35.1-46.3); Red Blood Cell Count 3.98 M/mm3 (3.80-5.20); White Blood Cell Count 7.92 K/mm3 (4.00-11.30)
[2021-12-19 18:35] LABS: Mean Corpuscular Volume 102 fL (80-100)
[2021-12-19 18:53] LABS: Albumin, Blood 2.9 g/dL (3.4-5.0); Albumin/Globulin Ratio 0.6 (0.8-1.8); Bilirubin, Total 0.2 mg/dL (0.1-1.0); Bun/Creatinine Ratio 16.7 (12.0-20.0); Creatinine, Blood 1.08 mg/dL (0.40-1.00); Globulin, Blood 4.8 g/dL (2.2-4.0); Potassium, Blood 4.5 mmol/L (3.5-5.5); Total Protein, Blood 7.7 g/dL (6.4-8.2)
[2021-12-19 19:42] LABS: Source, Urine Straight Cath
[2021-12-19 19:51] LABS: Bilirubin, Urine Neg (Neg); Blood, Urine 5+ (Neg); Glucose Qualitative, Urine Neg (Neg); Ketones, Urine Neg (Neg); Leukocyte Esterase, Urine Neg (Neg); Nitrite, Urine Neg (Neg); Protein, Urine Neg (Neg); Specific Gravity, Urine 1.015 (1.003-1.022); Urobilinogen, Urine NORM (Normal)
[2021-12-19 19:57] LABS: Appearance, Urine Clear (Clear); Color, Urine Pale Yellow (P-Yellow)
[2021-12-19 19:59] LABS: Red Blood Cells, Urine 0-2 /hpf (0-2); Squamous Epithelial Cells Rare /hpf (Few); White Blood Cells, Urine 0-2 /hpf (0-5)
[2021-12-19 20:00] LABS: Bacteria Few /hpf
[2021-12-19 20:03] LABS: U Amphetamine Screen Not Detected; U Barbituate Screen DETECTED; U Benzodiazapine Screen Not Detected; U Buprenorphine Screen Not Detected; U Cannabinoids Screen Not Detected; U Cocaine Screen Not Detected; U Methadone Screen Not Detected; U Methamphetamine Screen Not Detected; U Opiates Screen Not Detected; U Oxycodone Screen Not Detected; U Phencyclidine Screen Not Detected; U Propoxyphene Screen Not Detected
[2021-12-19 22:58] LABS: Valproic Acid 10.7 ug/mL (50.0-100.0)
[2021-12-19] MEDS ORDERED: KETOROLAC TROMET5 M3 BOTHEYES (23:17)
[2021-12-19] MEDS ORDERED: POLYMYXIN B-TMP10 ML BOTHEYES (23:20)
[2021-12-19] MEDS ORDERED: PRED FORTE5 M1 BOTHEYES (23:20)
--- NOTE | 2021-12-20 01:22 | NUR ---
ADMIT NOTE HANDOFF RECEIVED FROM INDUSTRIAL HEALTH ENGINEER ALMA. PT ARRIVED TO FLOOR VIA GURNEY. IV ANTIB RX INFUSING. PT ON ROOM AIR. PT HAS AMS. BED ALARM IS ACTIVE.
--- NOTE | 2021-12-20 04:23 | NUR ---
SHIFT SUMMARY ADMITTED THIS SHIFT FROM ER FOR HYPOXIA/AMS. FULL CODE. IV ANTIB RX ARE SCHEDULED. LR INFUSING ORDERED. TELEMETRY: NSR @ 76 BPM. REPORTED TO BE CONFUSED, IMPULSIVE, AND CALLING OUT IN ER. INCONTINENT OF BM AND URINE. ATTENDS IN PLACE. BED ALARM IS ACTIVE. PT IS VERY SLEEPY AND WILL NOT STAY AWAKE FOR LONG THIS SHIFT. SHE IS ON RA.
[2021-12-20 05:40] LABS: BASOPHILS ABSOLUTE AUTO 0.05 K/mm3 (0.00-0.23); BASOPHILS PERCENT AUTO 1 % (0-2); EOSINOPHILS PERCENT AUTO 5 % (0-6); Hematocrit 36.5 % (33.0-51.0); Hemoglobin 11.8 g/dL (11.5-16.0); IMMATURE GRAN ABSOLUTE AUTO 0.01 K/mm3 (0.00-0.10); IMMATURE GRAN PERCENT AUTO 0 % (0-1); LYMPHOCYTES ABSOLUTE AUTO 2.27 K/mm3 (0.84-5.20); LYMPHOCYTES PERCENT AUTO 27 % (21-46); MONOCYTES ABSOLUTE AUTO 1.46 K/mm3 (0.16-1.47); MONOCYTES PERCENT AUTO 17 % (4-13); Mean Corpuscular HGB 32.2 pg (26.0-34.0); Mean Corpuscular HGB Conc 32.3 g/dL (31.5-36.5); Mean Corpuscular Volume 100 fL (80-100); Mean Platelet Volume 9.8 fL (9.1-12.4); NEUTROPHILS ABSOLUTE AUTO 4.25 K/mm3 (1.96-9.15); NEUTROPHILS PERCENT AUTO 50 % (41-73); Platelet Count 356 K/mm3 (150-400); RDW Coefficient Variation 12.3 % (11.7-14.2); RDW Standard Deviation 45.1 fL (35.1-46.3); Red Blood Cell Count 3.67 M/mm3 (3.80-5.20); White Blood Cell Count 8.44 K/mm3 (4.00-11.30)
[2021-12-20 05:55] LABS: Albumin, Blood 2.6 g/dL (3.4-5.0); Albumin/Globulin Ratio 0.7 (0.8-1.8); Bilirubin, Total 0.2 mg/dL (0.1-1.0); Bun/Creatinine Ratio 16.9 (12.0-20.0); Calcium, Blood 9.7 mg/dL (8.5-10.1); Creatinine, Blood 0.89 mg/dL (0.40-1.00); Globulin, Blood 3.9 g/dL (2.2-4.0); Potassium, Blood 4.1 mmol/L (3.5-5.5); Total Protein, Blood 6.5 g/dL (6.4-8.2)
--- NOTE | 2021-12-20 17:32 | NUR ---
SHIFT SUMMARY/TRANSFER PATIENT DENIES PAIN, NAUSEA AND SHORTNESS OF BREATH. PATIENT MEDICATED FOR AGITATION X2. PATIENT VERY AGITATED AT BEGINNING OF SHIFT. PATIENT YELLING AND CURSING AT STAFF. NOTIFIED, NO NEW ORDERS. PATIENT ATTEMPTING TO CLIMB OUT OF BED, ATTEMPTING TO KICK AND HIT STAFF. NOTIFIED AND CAME TO ROOM. NEW ORDERS FOR RESTRAINTS, IM ZYPREXA, CONSULT FOR DR. LAU. GOOD RESULTS FROM IM ZYPREXA. PATIENT IS A&O TO SELF. PATIENT NOT ABLE TO FOLLOW DIRECTIONS. PATIENT NOT ABLE TO REDIRECT. SPEECH THERAPY UNABLE TO ASSESS DUE TO COGNITION. THIS RN ATTEMPTED TO GIVE THIN LIQUIDS, PATIENT COUGHED AFTER. LATER IN SHIFT, ATTMEPTED TO GIVE HONEY THICK LIQUIDS, NO COUGH NOTED AFTER SWALLOW. PATIENT BECAME AGITATED AGAIN AT 1700. PATIENT YELLING, ATTEMPTING TO CRAWL OUT OF BED. ATTEMPING TO HIT STAFF WHEN DOING PERSONAL CARE. REPORT GIVEN TO ESTEE DALEY RN, PATIENT TRANSFERED TO ROOM 349. BELONGINGS SENT WITH PATIENT. CHART SENT WITH PATIENT. CALLED AND NOTIFIED OF ROOM CHANGE.
--- NOTE | 2021-12-20 18:15 | NUR ---
PT TRANSFERRED TO ROOM 349 FROM 358 DUE TO YELLING AND DISTURBING OTHER PTS. YELLING OUT LESS THIS EVENING BUT RESISTANT TO CHANGING BRIEFS AND LISA CARE. WILL REPORT CONDITION TO ONCOMING SHIFT.
--- NOTE | 2021-12-20 22:35 | NUR ---
BP IS 213/118 W/HR 102 BPM. SHE APPEARS ANDXIOUS AND PAINFUL BUT IS ASYMPTOMAT OF CARDIAC DISTRESS. 10MG IV HYDRALAZINE RECEIVED PRN PER PARAMETERS AND PLAN TO OBTAIN RX FOR PAIN MEDICINE. WILL REASSESS FOR EFFECT.
--- NOTE | 2021-12-20 22:35 | NUR ---
ALERTED TO S/S PAIN WITH ALLERGIES TO MORPHINE, CODEINE AND HYDROMORPHONE. NEW ORDER RECIEVED FOR TORADOL 20MG IV X1 W/OK TO REPEAT IN 4 HOURS X1 PRN. WILL ADMIN MED AND REEVALUATED FURTHER NEED.
--- NOTE | 2021-12-20 22:37 | NUR ---
BP IS 213/118 W/HR 102 BPM. SHE APPEARS ANXIOUS AND PAINFUL BUT IS ASYMPTOMATIC OF CARDIAC DISTRESS. 10MG IV HYDRALAZINE RECEIVED PRN PER PARAMETERS AND PLAN TO REASSESS FOR EFFECT.
--- NOTE | 2021-12-20 23:30 | NUR ---
PUREWIC CATH PLACED FOR INCONTINENCE AND SBD WHILE PT ON BEDREST IN JAVID AND BILAT WRIST RESTRAINTS.
--- NOTE | 2021-12-21 00:49 | NUR ---
ALERTED TO BP IMPROVED, NOW 121/81 BUT HR REMAINS VERY TACHY, NOW 1TEENS-120'S BPM. PT APPEARS FLUSHED W/ORAL TEMP OF 99.0. THERE WAS SLIGHT CONCERN FOR SEPSIS BUT LACTIC ACID IMPROVED FROM 3.4 TO 0.8. NEW ORDER RECIEVED TO PLACE PT ON TELEMETRY MONITORING AND CONTINUE TO MONITOR CLOSELY.
--- NOTE | 2021-12-21 03:30 | NUR ---
PT REMAINS S.TACH AND 100'S-1TEENS BPM. NO S/S CARDIAC DISTRESS.
--- NOTE | 2021-12-21 04:31 | NUR ---
SUMMARY: PT A/O TO SELF AND WAS DROWSY MUCH OF SHIFT BUT IS WAKEFUL TO VOICE AND DURING CARE. SHE APPROPRIATELY ANSWER Q'S AND SPECIFIES NEEDS IN GARBLED SPEECH AT TIMES. PT OCCASSIONALLY CALLS OUT FOR WATER BUT REMAINS NPO W/MOUTH CARE PROVIDED PRN. FALL RISK/IMPULSIVITY PERSISTS AND SHE IS OFTEN FIGITY SO VEST AND BILAT WRIST RESTRAINTS REMAIN INTACT FOR SAFETY/PROTECTION OF LINES. SHE IS REDIRECTABLE BUT IS CONFUSED AND FORGETFULL W/BED ALARM ON AND CAMERA MONITORING IN PROGRESS. PUREWIC CATH PLACED FOR HEAVY INCONTINENCE W/ATTENDS CHANGED PRN. TURN SCHEDULE MAINTAINED FOR SBD PREVENTION. PT BEGAN SHIFT HYPERTENSIVE W/PRN HYDRALAZINE RECIEVED FOR GOOD EFFECT BUT HR BECAME TACHY. PT PLACED ON TELEMETRY FOR CLOSER OBSERVATION AND SHE REMAINS S.TACH AT 100'S- 1TEENS BPM. PT C/O "ALLOVER" PAIN DURING REPOSITIONING AND HAD TORADOL X1 RX'D AND RECIEVED FOR ADEQUATE RELIEF. PT HASN'T EXHIBITED AGGITATED OR COMBATIVE BEHAVIOR THIS SHIFT SO NO PRN ANXIETY MEDS WERE REQUIRED. MIDDLEKAUFF CONSULT AND SWALLOW EVAL PENDING. MRI RX'D BUT SCREENING STILL NEEDS COMPLETED SINCE PT IS UNABLE TO ANSWER Q'S, WILL ALERT DAY STAFF OF NEED FOR FAMILY ASSIST. NO ACUTE CHANGES, VSS/AFEBRILE THIS AM. WCTM AND REPORT TO DAY RN.
[2021-12-21 06:34] LABS: BASOPHILS ABSOLUTE AUTO 0.08 K/mm3 (0.00-0.23); BASOPHILS PERCENT AUTO 1 % (0-2); EOSINOPHILS ABSOLUTE AUTO 0.07 K/mm3 (0.00-0.68); EOSINOPHILS PERCENT AUTO 1 % (0-6); Hematocrit 39.5 % (33.0-51.0); Hemoglobin 13.3 g/dL (11.5-16.0); IMMATURE GRAN ABSOLUTE AUTO 0.02 K/mm3 (0.00-0.10); IMMATURE GRAN PERCENT AUTO 0 % (0-1); LYMPHOCYTES ABSOLUTE AUTO 1.82 K/mm3 (0.84-5.20); LYMPHOCYTES PERCENT AUTO 16 % (21-46); MONOCYTES ABSOLUTE AUTO 1.52 K/mm3 (0.16-1.47); MONOCYTES PERCENT AUTO 14 % (4-13); Mean Corpuscular HGB 32.5 pg (26.0-34.0); Mean Corpuscular HGB Conc 33.7 g/dL (31.5-36.5); Mean Corpuscular Volume 97 fL (80-100); Mean Platelet Volume 9.4 fL (9.1-12.4); NEUTROPHILS ABSOLUTE AUTO 7.68 K/mm3 (1.96-9.15); NEUTROPHILS PERCENT AUTO 69 % (41-73); Platelet Count 425 K/mm3 (150-400); RDW Coefficient Variation 12.5 % (11.7-14.2); RDW Standard Deviation 44.1 fL (35.1-46.3); Red Blood Cell Count 4.09 M/mm3 (3.80-5.20); White Blood Cell Count 11.19 K/mm3 (4.00-11.30)
[2021-12-21 06:50] LABS: Magnesium, Blood 1.6 mg/dL (1.6-2.4); Salicylate 2.5 mg/dL (2.8-20.0)
[2021-12-21 07:16] LABS: Acetaminophen, Random <2.0 ug/mL (10.0-30.0); Alanine Aminotransfer (ALT/SGP 21 U/L (12-78); Albumin, Blood 2.8 g/dL (3.4-5.0); Albumin/Globulin Ratio 0.6 (0.8-1.8); Alk Phos 147 U/L (50-136); Anion Gap 10 mmol/L (6-16); Aspartate Aminotrans (AST/SGOT 35 U/L (12-37); Bilirubin, Total 0.4 mg/dL (0.1-1.0); Blood Urea Nitrogen 14 mg/dL (8-24); CO2, Blood 26 mmol/L (21-32); Calcium, Blood 9.8 mg/dL (8.5-10.1); Chloride, Blood 105 mmol/L (98-108); Creatinine, Blood 1.08 mg/dL (0.40-1.00); Glomerular Filtration Rate 52 (60-); Glucose, Blood 78 mg/dL (70-99); Potassium, Blood 4.1 mmol/L (3.5-5.5); Sodium, Blood 141 mmol/L (136-145); Total Protein, Blood 7.8 g/dL (6.4-8.2)
--- NOTE | 2021-12-21 18:20 | NUR ---
SHIFT SUMMARY PT SLEEPING MOST OF MORNING BUT AWAKE APPROX 11AM AND ABLE TO ASSIST IN FILLING OUT MRI FORM WITH . PARTICIPATED IN P.T. AND O.T. AND CLEARED TO EAT AND DRINK. HAS SINCE FORGOTTEN WHERE SHE IS AGAIN AND TALKING ABOUT LEAVING THE HOSPITAL. PROVIDED A LISTENING EAR AND CHATTED WITH HER UNTIL DINNER ARRIVED AND SHE STARTED TO EAT. REMAIN OUT OF RESTRAINTS SINCE 1400.
--- NOTE | 2021-12-22 04:02 | NUR ---
SHIFT SUMMARY PATIENT HAD NO ACUTE CHANGES. ALERT TO SELF AND BEDREST. PIV REMAINS INTACT. CONFUSED. VSS WITH LOW GRADE TEMPERATURE. DENIES PAIN, SOB, AND N/V. TELE MONITOR NSR 99. TAKES MEDICATION WHOLE WITH APPLESAUCE. CALL LIGHT IN REACH. BED IN LOWEST POSITION AND ALARM ACTIVATED. WILL CONTINUE TO MONITOR UNTIL DAY SHIFT NURSE ASSUMES CARE.
[2021-12-22 05:25] LABS: BASOPHILS PERCENT AUTO 1 % (0-2); EOSINOPHILS ABSOLUTE AUTO 0.12 K/mm3 (0.00-0.68); EOSINOPHILS PERCENT AUTO 1 % (0-6); Hematocrit 37.6 % (33.0-51.0); Hemoglobin 12.4 g/dL (11.5-16.0); IMMATURE GRAN ABSOLUTE AUTO 0.03 K/mm3 (0.00-0.10); IMMATURE GRAN PERCENT AUTO 0 % (0-1); LYMPHOCYTES ABSOLUTE AUTO 2.18 K/mm3 (0.84-5.20); LYMPHOCYTES PERCENT AUTO 17 % (21-46); MONOCYTES ABSOLUTE AUTO 1.54 K/mm3 (0.16-1.47); MONOCYTES PERCENT AUTO 12 % (4-13); Mean Corpuscular Volume 97 fL (80-100); Mean Platelet Volume 9.4 fL (9.1-12.4); NEUTROPHILS ABSOLUTE AUTO 8.64 K/mm3 (1.96-9.15); NEUTROPHILS PERCENT AUTO 69 % (41-73); Platelet Count 408 K/mm3 (150-400); RDW Coefficient Variation 12.6 % (11.7-14.2); RDW Standard Deviation 44.7 fL (35.1-46.3); Red Blood Cell Count 3.87 M/mm3 (3.80-5.20); White Blood Cell Count 12.61 K/mm3 (4.00-11.30)
--- NOTE | 2021-12-22 05:42 | NUR ---
TEMPERATURE 100.6 AND TYLENOLL 650 MG GIVEN PER EMAR. ROOM TEMPERATURE LOWERED, COVERS PULLED BACK AND FAN ON. TEMPERATURE 98.8 ON REASSESSMENT.
--- NOTE | 2021-12-22 05:53 | NUR ---
BP 170/82. IV APRESOLINE 10 MG GIVEN FOR SBP >160 BP 146/77 ON REASSESSMENT.
[2021-12-22 06:13] LABS: Albumin, Blood 2.7 g/dL (3.4-5.0); Anion Gap 8 mmol/L (6-16); Blood Urea Nitrogen 18 mg/dL (8-24); Bun/Creatinine Ratio 16.2 (12.0-20.0); CO2, Blood 28 mmol/L (21-32); Calcium, Blood 9.9 mg/dL (8.5-10.1); Chloride, Blood 103 mmol/L (98-108); Creatinine, Blood 1.11 mg/dL (0.40-1.00); Glomerular Filtration Rate 51 (60-); Glucose, Blood 101 mg/dL (70-99); Magnesium, Blood 1.6 mg/dL (1.6-2.4); Phosphorus, Blood 2.3 mg/dL (2.5-4.9); Potassium, Blood 3.7 mmol/L (3.5-5.5); Sodium, Blood 139 mmol/L (136-145)
[2021-12-22 13:32] LABS: Bicarbonate Venous 26.4 mmol/L (24.0-30.0); PCO2 Venous 42.8 mmHg (38-42); pH Blood Venous 7.42 (7.34-7.37)
[2021-12-22 14:56] LABS: Influenza A, PCR NEGATIVE (NEGATIVE); Influenza B, PCR NEGATIVE (NEGATIVE); Resp Syncytial Virus, PCR NEGATIVE (NEGATIVE); SARS-Cov-2 (COVID-19) PCR, MMC NEGATIVE (NEGATIVE)
[2021-12-22 17:12] LABS: Source, Urine Clean Catch
--- NOTE | 2021-12-22 17:44 | NUR ---
SHIFT SUMMARY PT AWAKE FOR BREAKFAST AND FEEDING SELF. CHATTY WITH STAFF AND ORIENTED TO SELF ONLY. FELL ASLEEP AFTER BREAKFAST AND THEN BECAME HARD TO WAKE UP. WOULD WAKE BUT FELL BACK ASLEEP QUICKLY AND SAID LET ME SLEEP. TOO SLEEPY TO EAT LUNCH BUT APPROX 1400 PT WOKE UP AND WAS MORE GRUMPY BUT TALKING AND CALLING SWEARING IN ROOM. CONFUSED AND SAYING LET HER DOG OUT OF THE HOUSE AND NOW ITS LOST. HAS BEEN AWAKE SINCE THEN REMAINING GRUMPY. WENT TO CT AND RETURNED YELLING BITCH BITCH BITCH!! SETTLED IN BED AND GIVEN TYLENOL TO BACK AND GENERALIZED PAIN. COFFEE GIVEN WELL WHICH SHE LIKED. IN WITH HER DOGS TO VISIT AND PT QUIET AND CHATTY WITH DOGS AND . POWERGLIDE STARTED BY SLOPE HOIST OPERATOR DUE TO POOR IV ACCESS. SEPSIS FLUIDS INFUSING.
[2021-12-22 17:53] LABS: Bilirubin, Urine Neg (Neg); Blood, Urine Neg (Neg); Color, Urine Yellow (P-Yellow); Glucose Qualitative, Urine Neg (Neg); Ketones, Urine 1+ (Neg); Leukocyte Esterase, Urine Neg (Neg); Nitrite, Urine Neg (Neg); Protein, Urine 1+ (Neg); Urobilinogen, Urine NORM (Normal); pH, Urine 6.5 (5.0-8.0)
[2021-12-22 18:18] LABS: Appearance, Urine Hazy (Clear)
[2021-12-22 18:19] LABS: Bacteria Mod /hpf; Hyaline Casts 0-2 /lpf (0-2); Red Blood Cells, Urine 0-2 /hpf (0-2); Squamous Epithelial Cells Mod /hpf (Few); White Blood Cells, Urine 0-2 /hpf (0-5)
--- NOTE | 2021-12-23 00:42 | NUR ---
PATIENT HAVING INCREASED AGITATION. CRUSING AT TIME. THREW WATER AT THIS ETCHER HAND. IM ZYPREXA 5 MG GIVEN THREE HOURS EARLIER WITH MINIMAL EFFECT. PATIENT CALLING, YELLING, AND REPEATING HERSELF. ON CAMERA.
--- NOTE | 2021-12-23 04:09 | NUR ---
SHIFT SUMMARY PATIENT HAD INCREASED AGITATION T/O SHIFT. THROWING WATER AT THIS STOCK OR DELIVERY CLERK X ONE. YELLING SHE WANTS TO GO HOME AND NO MORE IV'S. COMBATIVE WITH BASIC CARE AND REPOSITIONING. IM ZYPREXA 5 MG GIVEN WITH MINIMAL EFFECT X ONE. PO SEROQUEL 25 MG GIVEN AND PATIENT ABLE TO GET SLEEP. BEDREST. INDUSTRIAL GAS SERVICER HELPER NSR 90. VSS/AFEBRILE. REPORTED LEGS PAINFUL AND TYLENOL 650 MG GIVEN PER EMAR. DENIES CHEST PAIN, SOB, AND N/V. POWERLGLIDE JONE INTACT. LR INFUSED AT 200 mL/HR X TWO BAGS COMPLETE. IV ABX INFUSED. CALL LIGHT IN REACH. BED IN LOWEST POSITION AND BED ALARM ACTIVATED. ON CAMERA. ONE OOB ATTEMPT. CALL LIGHT IN REACH. WILL CONTINUE TO MONITOR UNTIL DAY SHIFT NURSE ASSUMES CARE.
[2021-12-23 05:22] LABS: BASOPHILS ABSOLUTE AUTO 0.07 K/mm3 (0.00-0.23); BASOPHILS PERCENT AUTO 1 % (0-2); EOSINOPHILS ABSOLUTE AUTO 0.15 K/mm3 (0.00-0.68); EOSINOPHILS PERCENT AUTO 2 % (0-6); Hematocrit 32.6 % (33.0-51.0); Hemoglobin 10.6 g/dL (11.5-16.0); IMMATURE GRAN ABSOLUTE AUTO 0.02 K/mm3 (0.00-0.10); IMMATURE GRAN PERCENT AUTO 0 % (0-1); LYMPHOCYTES ABSOLUTE AUTO 1.92 K/mm3 (0.84-5.20); LYMPHOCYTES PERCENT AUTO 20 % (21-46); MONOCYTES ABSOLUTE AUTO 1.15 K/mm3 (0.16-1.47); MONOCYTES PERCENT AUTO 12 % (4-13); Mean Corpuscular HGB 32.1 pg (26.0-34.0); Mean Corpuscular HGB Conc 32.5 g/dL (31.5-36.5); Mean Corpuscular Volume 99 fL (80-100); Mean Platelet Volume 9.5 fL (9.1-12.4); NEUTROPHILS PERCENT AUTO 65 % (41-73); Platelet Count 378 K/mm3 (150-400); RDW Coefficient Variation 12.7 % (11.7-14.2); RDW Standard Deviation 45.9 fL (35.1-46.3); White Blood Cell Count 9.51 K/mm3 (4.00-11.30)
[2021-12-23 05:46] LABS: Albumin, Blood 2.1 g/dL (3.4-5.0); Albumin/Globulin Ratio 0.5 (0.8-1.8); Bilirubin, Total 0.5 mg/dL (0.1-1.0); Bun/Creatinine Ratio 16.2 (12.0-20.0); C-REACTIVE PROTEIN, EXT RANGE 18.2 mg/dL (0.000-0.300); Calcium, Blood 9.3 mg/dL (8.5-10.1); Creatinine, Blood 1.05 mg/dL (0.40-1.00); Globulin, Blood 4.1 g/dL (2.2-4.0); Magnesium, Blood 1.4 mg/dL (1.6-2.4); Potassium, Blood 3.6 mmol/L (3.5-5.5); Total Protein, Blood 6.2 g/dL (6.4-8.2)
--- NOTE | 2021-12-23 16:28 | NUR ---
SHIFT SUMMARY MS SIMPSON IS ORIENTATED TO HER NAME, CONFUSED ANSWERS TO OTHER QUESTIONS. C/O R FOOT PAIN THIS AM, SEEN BY DR RAZA AND BRYSON GIVEN ORDERED. SHE HAS BEEN VERY SLEEPY THIS AFTERNOON, AWOKE TO LOUD VOICE, TOO SLEEPY TO EAT LUNCH. WORKED WITH OT THIS AM. NO LP PER DR RAZA, SO LOVENOX GIVEN ORDERED. INCONTINENT OF URINE. IV MEDS GIVEN TO DANYELL KELLER, FLUSHED WELL. NO FURTHER C/O R FOOT PAIN SINCE BRYSON, BUT SHE HAS BEEN SLEEPING A LOT SINCE THEN. BED LOW, CALL LIGHT IN REACH, BED ALARM ON.
--- NOTE | 2021-12-24 04:14 | NUR ---
Patient spent entire night speaking as if in a two way conversation. mostly like a flight of ideas, but then she would respond in the same conversation as if someone had just asked her a question. Rhonda had no recollection of the visits her FOREIGN EXCHANGE POSITION CLERK and myself had made into her room with fluids and to give medications. patient was banging on her table because she felt no one had been in to see her since the previous day. she is very concerned that she has "no place to go" . very little response to her right leg pain with either conchicine or acetaminphen
[2021-12-24 08:47] LABS: Vancomycin, Trough 14.1 ug/mL (5.0-10.0)
--- NOTE | 2021-12-24 11:50 | NUR ---
MS SIMPSON IS ORIENTATED TO SELF. SHE SAID SHE HAD A GOOD NIGHT AND SLEPT WELL, DOESN'T REMEMBER HAVING A DIFFICULT NIGHT. OOBTC AND TO BSC WITH 1-2 PERSON ASSIST, GAIT BELT AND WALKER. PT C/O FEELING COLD - WARM BLANKETS ON, HEATING PAD APPLIED AND ROOM TEMPERATURE ADJUSTED. +BM THIS AM IN BSC. STILL C/O BILATERAL FOOT PAIN WHEN ASKED. REDNESS OBSERVED ON RIGHT FOOT. BED ALARM AND CHAIR ALARMS USED. CALL LIGHT IN REACH.
[2021-12-24 13:56] LABS: Bun/Creatinine Ratio 17.8 (12.0-20.0); Calcium, Blood 9.5 mg/dL (8.5-10.1); Creatinine, Blood 1.01 mg/dL (0.40-1.00); Potassium, Blood 3.7 mmol/L (3.5-5.5)
--- NOTE | 2021-12-24 17:13 | NUR ---
MS SIMPSON HAS SAT OUT IN THE CHAIR TODAY FOR 2-3 HOURS. SHE DID AGREE TO GET UP AGAIN FOR SUPPER. WHEN SITTING OUT THIS MORNING SHE DID C/O WANTING TO GET BACK TO BED, CALLING OUT AND AGGITATED IN THE CHAIR, ONCE BACK IN BED SHE DID SETTLE. SHE IS WARM NOW WITH HEATING PAD, AFTER C/O FREQUENTLY FEELING COLD. SHE HASN'T C/O FOOT PAIN, BUT DOES ADMIT TO FOOT PAIN WHEN SPECIFICALLY ASKED. ON SCHEDULED TYLENOL AND MEDS FOR GOUT WHICH APPEAR TO BE HELPING. SHE CONTINUES TO BE CONFUSED, BUT ENGAGES IN CONVERSATIONS WITH HER VISITORS, REMEMBERING DETAILS FROM PRIOR TO HOSPITAL EVENTS. BED LOW, CALL LIGHT IN REACH, BED ALARM ON.
[2021-12-25 06:50] LABS: Bun/Creatinine Ratio 21.7 (12.0-20.0); Calcium, Blood 9.3 mg/dL (8.5-10.1); Creatinine, Blood 1.06 mg/dL (0.40-1.00); Potassium, Blood 3.9 mmol/L (3.5-5.5)
--- NOTE | 2021-12-25 12:47 | NUR ---
MS SIMPSON IS ORIENTATED TO HER NAME, A HOSPITAL IN [place], AND KNOWS THE MONTH AND YEAR BUT SAID SHE'S CONFUSED TO WHY SHE WOULD KNOW SUCH THINGS. SHE IS FORGETFUL AND CONFUSED, BUT ABLE TO HAVE CLEAR CONVERSATIONS ABOUT FRIENDS AND EVENTS WITH ME. UP TO THE CHAIR FOR BREAKFAST AND LUNCH WITH 1 PERSON ASSISTANCE. GAIT BELT AND WALKER USED. GOOD APPETITE. TAKING MEDS WITH APPLESAUCE EASILY. SWELLING AND REDNESS NOTED TO HER FEET, ON A SCHEDULED TYLENOL REGIME. SHE ADMITS TO FOOT PAIN WHEN ASKED, BUT OTHERWISE HAS NOT COMPLAINED OF IT. SHE HAS BEEN CALM AND ENGAGING IN CONVERSATION, FOLLOWING INSTRUCTIONS. IN CHAIR NOW WITH CHAIR ALARM ON AND CALL LIGHT IN REACH.
--- NOTE | 2021-12-25 17:58 | NUR ---
SHIFT SUMMARY PLEASE SEE RN NOTE FROM [id number]. NO ACUTE CHANGES SINCE THEN. PT REMAINS CALM AND COOPERATIVE WITH HER CARE, CONFUSED CONVERSATION MIXED WITH CLEAR CONVERSATION. BED LOW, BED ALARM ON, CALL LIGHT IN REACH.
--- NOTE | 2021-12-26 04:39 | NUR ---
BLEEM SLEPT WELL. MINIMAL C/O LEG PAIN AT HS RESOLVED WITH APAP. PATIENT STILL CONFUSED, BUT IS DEFINATELY CLEARING. TALKED ABOUT VISIT FROM HER TWO DOGS YESTERDAY. LOOKING FORWARD TO BEING HOME TO TAKE CARE OF THEM HERSELF. NO SIGNIFICANT CHANGES OVERNIGHT.
--- NOTE | 2021-12-26 16:34 | NUR ---
Pal Care referral received for evaluation of pt's s/s, multiple comorbidities for determination of what support she may qualify for in the home setting since plan is for d/c home with at this time. Pt has had poor PO intake and albumin level has decreased from 2.9 to 2.1 during this admission. Pt was admitted with toxic metabolic encephalopathy and lactic acidosis as well as hypoxic resp failure. When I arrived to visit, pt was sitting up in chair, eating veggie tray with hummus and enjoying it very much. She has a PMH of COPD, HTN, diastolic CHF with preserved EF, remote breast CA s/p chemo and STEMI/CAD. At this time I would recommend out patient palliative care services to visit pt at home for closer monitoring, s/s management and ongoing support for advanced care planning as pt's chronic conditions progress. She may qualify for hospice for protein/kiah malnutrion if she is interested in EOL care but hospice agency of choice would need to accept and document that criteria for hospice are met. Pt's impaired cognition and decreased independence with self-care/ADL's will make home management for spouse with his own health concerns overwhelming without added support in the home. Report on my visit provided to pt's RN, Dr and CM. Also discussed PO intake with ST. Pt is swallowing PO intake well today and has been d/c'd from ST services. I would anticipate that pt's PO intake will cont. to be inadequate due to pt's poor appetite/decreased interest in food. I did request that RN place diet request for veggie plate with hummus for lunch every day since she liked and ate that.
--- NOTE | 2021-12-26 18:25 | NUR ---
SHIFT SUMMARY PT IS DOING MUCH BETTER TODAY. SHE IS MORE COHERENT, CAN HOLD A COHESIVE CONVERSATION. SHE CALLS APPROPRIATELY. USES THE FWW TO THE BEDSIDE COMMODE, AND SITS UP IN THE CHAIR FOR MEALS. HER CAME TODAY AND SHE ENJOYED TIME TALKING WITH HIM. DISCHARGE PLAN STILL PENDING. BED IN THE LOWEST POSITION AND CALL LIGHT IN REACH
--- NOTE | 2021-12-26 23:23 | NUR ---
PHYSICIAN COMMUNICATION CONTACTED DR ORELLANA TO NOTIFY HIM THAT ERICKSON PATIENT WAS HAVING 6/10 PAIN AND ASKED IF HE THOUGHT THAT TORADOL WOULD BE APPROPRIATE FOR THE PATIENT, RELAYED PATIENT'S MOST RECENT LABS FOR KIDNEY FUNCTION. DR ORELLANA ORDERED TORADOL IV 15-30 MG Q8 HOURS NEEDED TO A TOTAL OF 6 DOSES.
--- NOTE | 2021-12-27 06:25 | NUR ---
SHIFT SUMMARY PATIENT ALERT AND ORIENTED X3. MEDICATED PER EMAR FOR PAIN. HAD NO COMPLAINTS OF SHORTNESS OF BREATH. NO ACUTE ISSUES NOTED OVERNIGHT. CALL LIGHT WITHIN REACH. REPORT GIVEN TO ONCOMING RN.
[2021-12-27 12:14] LABS: BASOPHILS PERCENT AUTO 1 % (0-2); EOSINOPHILS ABSOLUTE AUTO 0.35 K/mm3 (0.00-0.68); EOSINOPHILS PERCENT AUTO 5 % (0-6); Hematocrit 38.1 % (33.0-51.0); Hemoglobin 11.8 g/dL (11.5-16.0); IMMATURE GRAN ABSOLUTE AUTO 0.04 K/mm3 (0.00-0.10); IMMATURE GRAN PERCENT AUTO 1 % (0-1); LYMPHOCYTES ABSOLUTE AUTO 1.81 K/mm3 (0.84-5.20); LYMPHOCYTES PERCENT AUTO 23 % (21-46); MONOCYTES ABSOLUTE AUTO 0.82 K/mm3 (0.16-1.47); MONOCYTES PERCENT AUTO 11 % (4-13); Mean Corpuscular HGB 32.2 pg (26.0-34.0); Mean Corpuscular Volume 104 fL (80-100); Mean Platelet Volume 9.6 fL (9.1-12.4); NEUTROPHILS ABSOLUTE AUTO 4.61 K/mm3 (1.96-9.15); NEUTROPHILS PERCENT AUTO 60 % (41-73); Platelet Count 467 K/mm3 (150-400); RDW Coefficient Variation 13.1 % (11.7-14.2); RDW Standard Deviation 49.1 fL (35.1-46.3); Red Blood Cell Count 3.66 M/mm3 (3.80-5.20); White Blood Cell Count 7.73 K/mm3 (4.00-11.30)
[2021-12-27 12:27] LABS: Albumin, Blood 2.3 g/dL (3.4-5.0); Albumin/Globulin Ratio 0.5 (0.8-1.8); Bilirubin, Total 0.1 mg/dL (0.1-1.0); Bun/Creatinine Ratio 25.8 (12.0-20.0); C-REACTIVE PROTEIN, EXT RANGE 3.9 mg/dL (0.000-0.300); Calcium, Blood 9.3 mg/dL (8.5-10.1); Creatinine, Blood 0.93 mg/dL (0.40-1.00); Globulin, Blood 4.7 g/dL (2.2-4.0); Magnesium, Blood 1.8 mg/dL (1.6-2.4); Potassium, Blood 4.8 mmol/L (3.5-5.5)
--- NOTE | 2021-12-27 16:29 | NUR ---
SHIFT SUMMARY PATIENT IS ALERT AND ORIENTED X3. PATIENT HAS BEEN BETTER TODAY THAN IN REPORTED PAST SHIFTS. PATIENT CAN CARRY ON CONVERSATION. PATIENT CALLS APPROPRIATELY. PATIENT HAS BEEN IN CHAIR MOST OF DAY. PATIENT IS PLEASENT AND COOPERATIVE WITH CARE. PATIENT TAKES MEDICATIONS WELL IN APPLESAUCE. NO ACUTE EVENTS THIS SHIFT. PATIENT HAS NOT COMPLAINED OF PAIN, NAUSEA, SOB OR VOMITTING THIS SHIFT. BED IN LOWEST AND LOCKED POSITION. CALL LIGHT IN PLACE. WILL MONITOR UNTIL SHIFT CHANGE.
--- NOTE | 2021-12-28 05:12 | NUR ---
DISH NETWORK INSTALLER SUMMARY ADMITTED FOR TOXIC METABOLIC ENCEPHALOPATHY. PT IS A FULL CODE. SHE IS A 1PA WITH FWW BUT IS VERY WEAK. PT WAS COMPLAINING OF CRAMPING TO THE RIGHT THIGH AREA AND WAS MEDICATED X1 FOR PAIN. PLEASANT AND COOPERATIVE. PLAN FOR DISCHARGE HOME TODAY WITH HOME HEALTH.
[2021-12-28] MEDS ORDERED: ACET500 PO (11:35)
[2021-12-28] MEDS ORDERED: ALLO100 PO (11:36)
[2021-12-28] MEDS ORDERED: QUET25 PO (11:36)
--- NOTE | 2021-12-28 15:22 | NUR ---
DISCHARG SUMMARY PATIENT IS ALERT AND ORIENTED. PATIENT HAS BEEN PLEASENT AND COOPERATIVE WITH CARE. PATIENT HAS HAD NO ACUTE EVENTS THIS SHIFT. PATIENT WAS READ DISCHARGE INSTRUCTIONS. PATIENTS SON WAS EDUCATED WELL. PATIENT HAS HAD NO COMPLAINTS OF NAUSEA, SOB, PAIN OR VOMITTING THIS SHIFT. PATIENT WAS WHEELED OUT BY JUAN ZUNIGA TO PATIENTS FAMILY CAR.
== END 2021-12-28 15:18 | disposition home health service (06) | DRG 91 ==
LOC: ER 15:26 → MEDS 20:10 → ER 20:10 → MEDS 21:28
PROVIDERS: Family Medicine; Internal Medicine; Student in an Organized Health Care Education/Training Program; ADMIT Internal Medicine
DX: G92.8 Other toxic encephalopathy (principal); J96.21 Acute and chronic respiratory failure with hypoxia; E87.2 Acidosis; I13.0 Hypertensive heart and chronic kidney disease with heart failure and stage 1 through stage 4 chronic kidney disease, or unspecified chronic kidney disease; I50.32 Chronic diastolic (congestive) heart failure; E46 Unspecified protein-calorie malnutrition; I25.2 Old myocardial infarction; N18.9 Chronic kidney disease, unspecified; D72.829 Elevated white blood cell count, unspecified; M79.671 Pain in right foot; Z20.822 Contact with and (suspected) exposure to COVID-19; G40.909 Epilepsy, unspecified, not intractable, without status epilepticus; J44.9 Chronic obstructive pulmonary disease, unspecified; I25.10 Atherosclerotic heart disease of native coronary artery without angina pectoris; F31.9 Bipolar disorder, unspecified; N18.31 Chronic kidney disease, stage 3a; M10.9 Gout, unspecified; E88.09 Other disorders of plasma-protein metabolism, not elsewhere classified; M16.11 Unilateral primary osteoarthritis, right hip; F03.90 Unspecified dementia, unspecified severity, without behavioral disturbance, psychotic disturbance, mood disturbance, and anxiety; Z88.0 Allergy status to penicillin; Z88.5 Allergy status to narcotic agent; Z96.653 Presence of artificial knee joint, bilateral; Z90.12 Acquired absence of left breast and nipple; Z98.890 Other specified postprocedural states; Z79.899 Other long term (current) drug therapy; Z79.82 Long term (current) use of aspirin; Z86.73 Personal history of transient ischemic attack (TIA), and cerebral infarction without residual deficits; E83.42 Hypomagnesemia; Z68.25 Body mass index [BMI] 25.0-25.9, adult; G89.29 Other chronic pain; M54.59 Other low back pain
CPT/HCPCS: 0241U; 36415; 70450; 70551; 71045; 71046; 71260; 73630; 74177; 80048; 80053; 80069; 80164; 80202; 81001; 82140; 82803; 82947; 83605; 83735; 83880; 84145; 84443; 84550; 85025; 85651; 86140; 87040; 87077; 87086; 87186; 92526; 92610; 93005; 93010; 94760; 94762; 96361; 96365; 97110; 97116; 97162; 97165; 97530; 97535; 99285-25; A9270; G0480; J0360; J0692; J1650; J1885; J3370; J3475; J7040; J7060; J7120; J7512; P9612; Q9967

== ENCOUNTER 2022-10-27 00:07 | Emergency (ER) | payer OTHER ==
[~2022-10-27] VITALS: Ht 157.5 cm; Wt 63.5 kg
[~2022-10-27 00:07] MED LIST changes: +ALLO100 PO; -EUTHYROX100 MCG PO; +KETOROLAC TROMET5 M3 BOTHEYES; +POLYMYXIN B-TMP10 ML BOTHEYES; +QUET25 PO
[2022-10-27] MEDS ORDERED: MEPERIDINE PO (02:34)
[2022-10-27 02:45] VITALS: BP 102/57
[2022-10-27] MEDS ORDERED: DEMEROL PO (11:04)
== END 2022-10-27 03:10 | disposition home or self-care (01) ==
LOC: ER 00:07
DX: G89.18 Other acute postprocedural pain (principal); L29.9 Pruritus, unspecified; T40.2X5A Adverse effect of other opioids, initial encounter; I11.0 Hypertensive heart disease with heart failure; I50.9 Heart failure, unspecified; J44.9 Chronic obstructive pulmonary disease, unspecified; E03.9 Hypothyroidism, unspecified; Y83.8 Other surgical procedures as the cause of abnormal reaction of the patient, or of later complication, without mention of misadventure at the time of the procedure; Z88.0 Allergy status to penicillin; Z88.5 Allergy status to narcotic agent; Z79.899 Other long term (current) drug therapy; Z79.82 Long term (current) use of aspirin; Z79.890 Hormone replacement therapy; I25.2 Old myocardial infarction; Z96.653 Presence of artificial knee joint, bilateral; Z96.641 Presence of right artificial hip joint; Z87.891 Personal history of nicotine dependence
CPT/HCPCS: J2175

== ENCOUNTER 2022-10-27 21:09 | Emergency (ER) | payer OTHER ==
[~2022-10-27] VITALS: Ht 157.5 cm; Wt 63.5 kg
[~2022-10-27 21:09] MED LIST changes: +DEMEROL PO; +MEPERIDINE PO
[2022-10-27 22:02] LABS: BASOPHILS ABSOLUTE AUTO 0.04 K/mm3 (0.00-0.23); BASOPHILS PERCENT AUTO 0 % (0-2); EOSINOPHILS ABSOLUTE AUTO 0.12 K/mm3 (0.00-0.68); EOSINOPHILS PERCENT AUTO 1 % (0-6); Hematocrit 24.9 % (33.0-51.0); Hemoglobin 7.9 g/dL (11.5-16.0); IMMATURE GRAN ABSOLUTE AUTO 0.08 K/mm3 (0.00-0.10); IMMATURE GRAN PERCENT AUTO 1 % (0-1); LYMPHOCYTES ABSOLUTE AUTO 1.94 K/mm3 (0.84-5.20); LYMPHOCYTES PERCENT AUTO 17 % (21-46); MONOCYTES ABSOLUTE AUTO 1.53 K/mm3 (0.16-1.47); MONOCYTES PERCENT AUTO 14 % (4-13); Mean Corpuscular HGB 33.3 pg (26.0-34.0); Mean Corpuscular HGB Conc 31.7 g/dL (31.5-36.5); Mean Corpuscular Volume 105 fL (80-100); Mean Platelet Volume 10.1 fL (9.1-12.4); NEUTROPHILS ABSOLUTE AUTO 7.48 K/mm3 (1.96-9.15); NEUTROPHILS PERCENT AUTO 67 % (41-73); NRBC ABSOLUTE 0.03 K/mm3 (0.00-0.02); NRBC Auto 0.3 /100 WBC (0.0-0.2); Platelet Count 234 K/mm3 (150-400); RDW Coefficient Variation 14.6 % (11.7-14.2); RDW Standard Deviation 55.6 fL (35.1-46.3); Red Blood Cell Count 2.37 M/mm3 (3.80-5.20); White Blood Cell Count 11.19 K/mm3 (4.00-11.30)
[2022-10-27 22:20] LABS: Albumin, Blood 2.8 g/dL (3.4-5.0); Albumin/Globulin Ratio 0.8 (0.8-1.8); Bilirubin, Total 0.7 mg/dL (0.1-1.0); Bun/Creatinine Ratio 24.8 (12.0-20.0); Calcium, Blood 9.5 mg/dL (8.5-10.1); Creatinine, Blood 1.21 mg/dL (0.40-1.00); Globulin, Blood 3.6 g/dL (2.2-4.0); Potassium, Blood 4.8 mmol/L (3.5-5.5); Total Protein, Blood 6.4 g/dL (6.4-8.2)
[2022-10-28 05:38] VITALS: BP 131/75
[2022-10-29] MEDS ORDERED: TAMS.4ER PO (08:26)
[2022-10-29] MEDS ORDERED: TOLTERODINE TART4 MG PO (10:19)
[2022-10-29] MEDS ORDERED: DOCU100 PO (10:45)
[2022-10-29] MEDS ORDERED: FURO20 PO ×2 (12:16→12:18)
== END 2022-10-28 06:50 | disposition home or self-care (01) ==
LOC: ER 21:09
PROVIDERS: Student in an Organized Health Care Education/Training Program
DX: G89.18 Other acute postprocedural pain (principal); M25.551 Pain in right hip; D64.9 Anemia, unspecified; E86.0 Dehydration; Z88.0 Allergy status to penicillin; Z88.5 Allergy status to narcotic agent; Z79.899 Other long term (current) drug therapy; Z79.82 Long term (current) use of aspirin; Z79.52 Long term (current) use of systemic steroids; I11.0 Hypertensive heart disease with heart failure; J44.9 Chronic obstructive pulmonary disease, unspecified; E03.9 Hypothyroidism, unspecified; Z85.3 Personal history of malignant neoplasm of breast; I50.9 Heart failure, unspecified; Z87.891 Personal history of nicotine dependence
CPT/HCPCS: 72192; 80053; 85025; 96361; 96372; 96374; 96376; 99282-25; 99284-25; J2175; J7030

== ENCOUNTER 2022-10-29 01:08 | Observation (INO) | payer OTHER ==
[~2022-10-29] VITALS: Ht 157.5 cm; Wt 68.9 kg
[2022-10-29 01:55] LABS: PCO2 Arterial 32.9 mmHg (35-45); PO2 Arterial 102 mmHg (80-100); pH Blood Arterial 7.39 (7.35-7.45)
[2022-10-29 02:04] LABS: BASOPHILS ABSOLUTE AUTO 0.03 K/mm3 (0.00-0.23); BASOPHILS PERCENT AUTO 0 % (0-2); EOSINOPHILS ABSOLUTE AUTO 0.23 K/mm3 (0.00-0.68); EOSINOPHILS PERCENT AUTO 3 % (0-6); Hematocrit 20.8 % (33.0-51.0); Hemoglobin 6.6 g/dL (11.5-16.0); IMMATURE GRAN ABSOLUTE AUTO 0.08 K/mm3 (0.00-0.10); IMMATURE GRAN PERCENT AUTO 1 % (0-1); LYMPHOCYTES PERCENT AUTO 22 % (21-46); MONOCYTES ABSOLUTE AUTO 1.04 K/mm3 (0.16-1.47); MONOCYTES PERCENT AUTO 14 % (4-13); Mean Corpuscular HGB 32.8 pg (26.0-34.0); Mean Corpuscular HGB Conc 31.7 g/dL (31.5-36.5); Mean Corpuscular Volume 104 fL (80-100); NEUTROPHILS ABSOLUTE AUTO 4.43 K/mm3 (1.96-9.15); NEUTROPHILS PERCENT AUTO 60 % (41-73); NRBC ABSOLUTE 0.03 K/mm3 (0.00-0.02); NRBC Auto 0.4 /100 WBC (0.0-0.2); Platelet Count 242 K/mm3 (150-400); RDW Coefficient Variation 14.6 % (11.7-14.2); RDW Standard Deviation 56.4 fL (35.1-46.3); Red Blood Cell Count 2.01 M/mm3 (3.80-5.20); White Blood Cell Count 7.41 K/mm3 (4.00-11.30)
[2022-10-29 02:20] LABS: Albumin, Blood 2.5 g/dL (3.4-5.0); Albumin/Globulin Ratio 0.7 (0.8-1.8); Bilirubin, Total 0.7 mg/dL (0.1-1.0); Bun/Creatinine Ratio 18.1 (12.0-20.0); Creatinine, Blood 1.6 mg/dL (0.40-1.00); Globulin, Blood 3.4 g/dL (2.2-4.0); Potassium, Blood 4.1 mmol/L (3.5-5.5); Total Protein, Blood 5.9 g/dL (6.4-8.2)
[2022-10-29 05:17] LABS: Percent Saturation 12.9 % (15.0-50.0)
[2022-10-29 08:24] VITALS: BP 141/77
[2022-10-29] MEDS ORDERED: TAMS.4ER PO (08:26)
[2022-10-29 08:49] LABS: Hematocrit 26.8 % (33.0-51.0); Hemoglobin 8.6 g/dL (11.5-16.0); Mean Corpuscular HGB 32.5 pg (26.0-34.0); Mean Corpuscular HGB Conc 32.1 g/dL (31.5-36.5); Mean Corpuscular Volume 101 fL (80-100); Mean Platelet Volume 9.8 fL (9.1-12.4); NRBC ABSOLUTE 0.02 K/mm3 (0.00-0.02); NRBC Auto 0.3 /100 WBC (0.0-0.2); Platelet Count 252 K/mm3 (150-400); RDW Coefficient Variation 16.4 % (11.7-14.2); RDW Standard Deviation 60.9 fL (35.1-46.3); Red Blood Cell Count 2.65 M/mm3 (3.80-5.20); White Blood Cell Count 7.46 K/mm3 (4.00-11.30)
[2022-10-29 09:02] LABS: Bun/Creatinine Ratio 18.4 (12.0-20.0); Calcium, Blood 8.9 mg/dL (8.5-10.1); Creatinine, Blood 1.36 mg/dL (0.40-1.00); Potassium, Blood 4.2 mmol/L (3.5-5.5)
--- NOTE | 2022-10-29 10:09 | NUR ---
PATIENT ADMIT TO PCU THIS AM AT 0802. ABLE TO STAND AND TRANSFER TO BED WITH 1 PERSON ASSIST. RECENT HIP REPLACEMENT ON 10/24. DRESSING C/D/I. ALERT AND ORIENTED X4. CHRONIC N/T TO HANDS AND FEET. USES FRONT WHEELWALKER AT BASELINE. PT/OT ORDERS IN PLACE. ON ROOM AIR SATING ABOVE 95%. DENIES COUGH/CONGESTION. LUNGS SOUNDING CLEAR. PATIENT STATES SHE HAS OXYGEN AT HOME BUT DOES NOT USE IT. TELE SHOWING SR WITH HR 80-90'S. SCD'S IN PLACE. DENIES CHEST PAIN/PRESSURE/PALPITATIONS. BP STABLE. CODE STATUS REVIEWED WITH DR. GARCIA AT BEDSIDE. PATIENT STATES DNR BUT OKAY WITH INTUBATION. POLST DONE AT BEDSIDE. COPY FAXED TO [facility] AND PLACED IN CHART. DENIES ABDOMINAL PAIN/NAUSEA. STATES SHE HAS NOT HAD BOWEL MOVEMENT IN 2 WEEKS. BOWEL CARE MEDS DISCUSSED WITH DR. GARCIA. PATIENT ALSO STATES SHE HAD RECENT UTI 2 WEEKS AGO. DENIES UTI SYMPTOMS AT THIS TIME. DR. GARCIA IN TO ASSESS PATIENT THIS AM, THIS NURSE AT BEDSIDE DURING ASSESSMENT. ORDERS FOR THIS RN TO PLACE INCLUDE: DISCONTINUE NORMAL SALINE AND DISCONTINUE CT PELVIS WITH CONTRAST AT THIS TIME. ORDERS IN PLACE. WILL UPDATE DR. GARCIA WHEN HOME MED REC IS COMPLETED.
[2022-10-29] MEDS ORDERED: TOLTERODINE TART4 MG PO (10:19)
[2022-10-29] MEDS ORDERED: DOCU100 PO (10:45)
--- NOTE | 2022-10-29 10:46 | NUR ---
MED REC COMPLETE PER [facility] WITH CALL CENTER TRAINER HELP. DR. GARCIA UPDATED.
[2022-10-29 11:09] VITALS: BP 125/61
[2022-10-29] MEDS ORDERED: FURO20 PO ×2 (12:16→12:18)
[2022-10-29 15:15] VITALS: BP 111/53
--- NOTE | 2022-10-29 17:57 | NUR ---
SHIFT SUMMARY: NO ACUTE CHANGES. PHYSICAL THERAPY IN TO SEE PATIENT. UP WALKING IN ROOM AND SPENT TIME IN CHAIR. PATIENT EDUCATED ON HIP PRECAUTIONS AND ABLE TO VERBALIZE BACK TO THIS RN. INTERMIT PAIN THIS SHIFT, PRN HYDROCODONE HELPFUL IN MINIMIZING PAIN. DRESSING C/D/I TO RIGHT HIP. NO INCREASE IN RIGHT HIP BRUISING. TELE REMAINS UNCHANGED. ON ROOM AIR. VITAL SIGNS STABLE. MARCELLO IN TO VISIT, UPDATED BY THIS RN. EATING AND VOIDING WNL. CALL LIGHT IN REACH.
[2022-10-29 21:12] VITALS: BP 117/68
[2022-10-29 23:39] VITALS: BP 151/60
--- NOTE | 2022-10-30 01:40 | NUR ---
DID NOT TURN PT PER NURSE'S REQUEST. PT HAS SIGNIFICANT PAIN WHEN RIGHT LEG ISN'T FLOATED, THEREFORE WE ARE LETTING PT GET SLEEP RATHER THAN TURNING Q2.
[2022-10-30 04:07] VITALS: BP 154/76
[2022-10-30 04:45] LABS: BASOPHILS ABSOLUTE AUTO 0.04 K/mm3 (0.00-0.23); BASOPHILS PERCENT AUTO 1 % (0-2); EOSINOPHILS ABSOLUTE AUTO 0.42 K/mm3 (0.00-0.68); EOSINOPHILS PERCENT AUTO 5 % (0-6); Hematocrit 27.3 % (33.0-51.0); Hemoglobin 8.8 g/dL (11.5-16.0); IMMATURE GRAN ABSOLUTE AUTO 0.14 K/mm3 (0.00-0.10); IMMATURE GRAN PERCENT AUTO 2 % (0-1); LYMPHOCYTES PERCENT AUTO 24 % (21-46); MONOCYTES ABSOLUTE AUTO 1.14 K/mm3 (0.16-1.47); MONOCYTES PERCENT AUTO 14 % (4-13); Mean Corpuscular HGB 32.1 pg (26.0-34.0); Mean Corpuscular HGB Conc 32.2 g/dL (31.5-36.5); Mean Corpuscular Volume 100 fL (80-100); Mean Platelet Volume 9.7 fL (9.1-12.4); NEUTROPHILS ABSOLUTE AUTO 4.53 K/mm3 (1.96-9.15); NEUTROPHILS PERCENT AUTO 55 % (41-73); NRBC ABSOLUTE 0.03 K/mm3 (0.00-0.02); NRBC Auto 0.4 /100 WBC (0.0-0.2); Platelet Count 297 K/mm3 (150-400); RDW Coefficient Variation 16.4 % (11.7-14.2); RDW Standard Deviation 59.3 fL (35.1-46.3); Red Blood Cell Count 2.74 M/mm3 (3.80-5.20); White Blood Cell Count 8.27 K/mm3 (4.00-11.30)
[2022-10-30 04:59] LABS: Calcium, Blood 9.4 mg/dL (8.5-10.1); Creatinine, Blood 1.19 mg/dL (0.40-1.00); Potassium, Blood 4.5 mmol/L (3.5-5.5)
--- NOTE | 2022-10-30 05:22 | NUR ---
SHIFT SUMMARY PT A&Ox4, CALLS AND COMMUNICATES NEEDS APPROPRIATELY. BP STABLE, NSR-ST 80-100's, DENIES CP/PRESSURE. SpO2> 92% RA, REPORTS MILD SOB. BRUISING AT RIGHT HIT REPAIR SITE REMAINED UNCHANGED, DRESSING C/D/I. PT WITH C/O PAIN IN RIGHT HIP, MEDICATED PER EMAR, PROVIDED REPOSITIONING. PT INCONTINENT OF URINE, ATTENDS IN PLACE. NO OTHER EVENTS, WILL REPORT TO ONCOMING RN.
[2022-10-30 07:27] VITALS: BP 145/67
--- NOTE | 2022-10-30 09:56 | NUR ---
ASSUMPTION OF CARE NOTE THIS NURSE ASSUMED CARE OF PT AT APPROX. 0900. PT IS NOW RECIEVING BED BATH BY FISHER EEL SPEAR AND FISHER EEL SPEAR HEDIS REGISTERED NURSE RN.VSS. WILL CONTINUE TO MONITOR UNTIL REPORT GIVEN TO ARNULFO GREENBERG RN.
[2022-10-30 12:23] VITALS: BP 114/62
--- NOTE | 2022-10-30 16:07 | NUR ---
UPDATE PT CONTINUES TO BE ALERT AND ORIENTED. VS STABLE. SURGICAL BED AVAILABLE AND REPORT GIVEN TO BARRY MONAE. PT TO BE TAKEN OVER WITH ALL OF HER BELONGINGS.
[2022-10-30 17:15] VITALS: BP 159/83
--- NOTE | 2022-10-30 17:25 | NUR ---
PT ARRIVED TO UNIT FROM PCU IN . TRANSFERRED WITH SBA TO BED, USED GAITBELT INDEPENDENTLY TO RAISE RLE INTO BED. CALL LIGHT IN REACH. MEDICATED PER ORDERS FOR PAIN AND ITCHING. PT RATED PAIN 8/10 TO RLE. DRESSING TO RLE CDI.
--- NOTE | 2022-10-30 17:55 | NUR ---
PT ARRIVED TO FLOOR IN WHEEL CHAIR, TRANSFERED TO BED WITH 1X ASSIST TOLERATED WELL. OBTAINED V/S AND ORIENTED TO ROOM. PT LYING IN BED WITH CALL LIGHT IN REACH.
--- NOTE | 2022-10-30 18:08 | NUR ---
REVIEWED SN DOCUMENTATION
[2022-10-30 19:51] VITALS: BP 122/72
[2022-10-31 04:15] VITALS: BP 147/82
--- NOTE | 2022-10-31 05:22 | NUR ---
SHIFT SUMMARY AOX4. ANXIOUS & TEARFUL @BEGINNING OF SHIFT, REPORTED GRACIE "EMOTIONALLY IN PAIN," MEDICATED c SCHEDULED HS MEDS & PT MORE CALM THIS AM. VSS. REPORTS 8-910 PAIN IN R HIP/LEG, MEDICATED 2x c NORCO & PT REPORTS PAIN DECREASES. R HIP HONEYCOMB DRESSING C/D/I, MIN RED DRAINAGE UNDER BANDAGE, +1 SWELLING R HIP SURROUNDING DRESSING, WARM TO TOUCH, CAP REFILL <3 & STRONG PEDAL PULSE. REPORTS CHRONIC N/T TO ALL EXTREMITIES. PT APPEARED DYSPNIC @BEGINNING OF SHIFT WHILE ANXIOUS, HOWEVER SPO2 >92% ON RA, LS DIM c SCATTERED EXP WHEEZES & THIS AM E/U RESP. CALL LIGHT IN REACH, WILL MONITOR.
[2022-10-31 07:13] VITALS: BP 163/82
[2022-10-31 07:50] LABS: BASOPHILS ABSOLUTE AUTO 0.04 K/mm3 (0.00-0.23); BASOPHILS PERCENT AUTO 1 % (0-2); EOSINOPHILS ABSOLUTE AUTO 0.31 K/mm3 (0.00-0.68); EOSINOPHILS PERCENT AUTO 4 % (0-6); Hematocrit 25.6 % (33.0-51.0); Hemoglobin 8.4 g/dL (11.5-16.0); IMMATURE GRAN ABSOLUTE AUTO 0.16 K/mm3 (0.00-0.10); IMMATURE GRAN PERCENT AUTO 2 % (0-1); LYMPHOCYTES ABSOLUTE AUTO 1.86 K/mm3 (0.84-5.20); LYMPHOCYTES PERCENT AUTO 23 % (21-46); MONOCYTES ABSOLUTE AUTO 1.09 K/mm3 (0.16-1.47); MONOCYTES PERCENT AUTO 13 % (4-13); Mean Corpuscular HGB 32.8 pg (26.0-34.0); Mean Corpuscular HGB Conc 32.8 g/dL (31.5-36.5); Mean Corpuscular Volume 100 fL (80-100); Mean Platelet Volume 9.3 fL (9.1-12.4); NEUTROPHILS ABSOLUTE AUTO 4.66 K/mm3 (1.96-9.15); NEUTROPHILS PERCENT AUTO 57 % (41-73); Platelet Count 348 K/mm3 (150-400); RDW Coefficient Variation 16.1 % (11.7-14.2); RDW Standard Deviation 58.4 fL (35.1-46.3); Red Blood Cell Count 2.56 M/mm3 (3.80-5.20); White Blood Cell Count 8.12 K/mm3 (4.00-11.30)
[2022-10-31 08:09] LABS: Albumin, Blood 2.3 g/dL (3.4-5.0); Albumin/Globulin Ratio 0.6 (0.8-1.8); Bilirubin, Total 0.5 mg/dL (0.1-1.0); Bun/Creatinine Ratio 25.6 (12.0-20.0); Calcium, Blood 9.2 mg/dL (8.5-10.1); Creatinine, Blood 0.9 mg/dL (0.40-1.00); Globulin, Blood 3.8 g/dL (2.2-4.0); Magnesium, Blood 1.6 mg/dL (1.6-2.4); Phosphorus, Blood 2.9 mg/dL (2.5-4.9); Potassium, Blood 4.4 mmol/L (3.5-5.5); Total Protein, Blood 6.1 g/dL (6.4-8.2)
[2022-10-31] MEDS ORDERED: Norco 5-325 Ta1 EACH PO (12:01)
[2022-10-31] MEDS ORDERED: HYDHCL25 PO (12:02)
[2022-10-31 15:07] VITALS: BP 123/85
--- NOTE | 2022-10-31 16:57 | NUR ---
DISCHARGED REVIEWED DC INSTRUCTIONS W/PT; VERBALIZED UNDERSTANDING. PT LEFT UNIT IN WC W/POSSESSIONS AND DC PAPERWORK IN HAND, ACCOMPANIED BY SPOUSE.
== END 2022-10-31 16:45 | disposition home or self-care (01) ==
LOC: ER 01:08 → PCU 01:09 → SURS 10-30 16:49
PROVIDERS: Hospitalist; Internal Medicine; Student in an Organized Health Care Education/Training Program; ADMIT Internal Medicine
DX: J96.21 Acute and chronic respiratory failure with hypoxia (principal); Z99.81 Dependence on supplemental oxygen; I13.0 Hypertensive heart and chronic kidney disease with heart failure and stage 1 through stage 4 chronic kidney disease, or unspecified chronic kidney disease; J44.9 Chronic obstructive pulmonary disease, unspecified; E03.9 Hypothyroidism, unspecified; I25.2 Old myocardial infarction; Z96.653 Presence of artificial knee joint, bilateral; Z66 Do not resuscitate; Z88.5 Allergy status to narcotic agent; N17.9 Acute kidney failure, unspecified; N18.30 Chronic kidney disease, stage 3 unspecified; I25.10 Atherosclerotic heart disease of native coronary artery without angina pectoris; D62 Acute posthemorrhagic anemia; I50.32 Chronic diastolic (congestive) heart failure; G89.4 Chronic pain syndrome; F32.9 Major depressive disorder, single episode, unspecified
CPT/HCPCS: 36415; 36430; 36600; 71046; 71260; 80048; 80053; 82728; 82803; 83540; 83550; 83735; 83880; 84100; 84484; 85025; 85027; 85379; 86850; 86900; 86901; 86923; 93005; 93010; 94760; 96360-59; 97110; 97116; 97162; 97166; 97530; 99285-25; A9270; J1644; J7030; P9016; Q9967

== ENCOUNTER 2022-11-06 08:23 | Emergency (ER) | payer OTHER ==
[~2022-11-06] VITALS: Ht 157.5 cm; Wt 63.5 kg
[~2022-11-06 08:23] MED LIST changes: +DOCU100 PO; +HYDHCL25 PO; +Norco 5-325 Ta1 EACH PO; +TAMS.4ER PO; +TOLTERODINE TART4 MG PO
[2022-11-06] MEDS ORDERED: AMLODIPINE BESYL5 MG PO (09:11)
[2022-11-06 10:10] LABS: BASOPHILS ABSOLUTE AUTO 0.07 K/mm3 (0.00-0.23); BASOPHILS PERCENT AUTO 1 % (0-2); EOSINOPHILS ABSOLUTE AUTO 0.16 K/mm3 (0.00-0.68); EOSINOPHILS PERCENT AUTO 1 % (0-6); Hemoglobin 9.5 g/dL (11.5-16.0); IMMATURE GRAN ABSOLUTE AUTO 0.08 K/mm3 (0.00-0.10); IMMATURE GRAN PERCENT AUTO 1 % (0-1); LYMPHOCYTES ABSOLUTE AUTO 1.02 K/mm3 (0.84-5.20); LYMPHOCYTES PERCENT AUTO 7 % (21-46); MONOCYTES ABSOLUTE AUTO 1.05 K/mm3 (0.16-1.47); MONOCYTES PERCENT AUTO 7 % (4-13); Mean Corpuscular HGB 32.1 pg (26.0-34.0); Mean Corpuscular HGB Conc 31.7 g/dL (31.5-36.5); Mean Corpuscular Volume 101 fL (80-100); NEUTROPHILS ABSOLUTE AUTO 13.03 K/mm3 (1.96-9.15); NEUTROPHILS PERCENT AUTO 85 % (41-73); Platelet Count 678 K/mm3 (150-400); RDW Coefficient Variation 14.9 % (11.7-14.2); RDW Standard Deviation 55.6 fL (35.1-46.3); Red Blood Cell Count 2.96 M/mm3 (3.80-5.20); White Blood Cell Count 15.41 K/mm3 (4.00-11.30)
[2022-11-06] MEDS ORDERED: Pepcid20 MG PO (10:58)
[2022-11-06] MEDS ORDERED: Prednisone20 MG PO (10:58)
[2022-11-06] MEDS ORDERED: Benadryl 50 mg50 MG PO (10:58)
[2022-11-06 11:00] VITALS: BP 129/72
== END 2022-11-06 11:15 | disposition home or self-care (01) ==
LOC: ER 08:23
PROVIDERS: Family Medicine
DX: L50.9 Urticaria, unspecified (principal); T40.2X5A Adverse effect of other opioids, initial encounter; I10 Essential (primary) hypertension; I25.2 Old myocardial infarction; Z88.0 Allergy status to penicillin; Z88.5 Allergy status to narcotic agent; Z79.899 Other long term (current) drug therapy; Z87.891 Personal history of nicotine dependence; X58.XXXA Exposure to other specified factors, initial encounter
CPT/HCPCS: 36415; 85025; J1100; J1200

== ENCOUNTER 2023-02-13 11:57 | Inpatient (IN) | payer OTHER ==
[~2023-02-13] VITALS: Ht 162.6 cm; Wt 64.5 kg
[~2023-02-13 11:57] MED LIST changes: -AMOX875 PO; -Amlodipine Bes2.5 MG PO; -NYAMYC1513 TOP
[2023-02-13 12:22] VITALS: BP 118/57
[2023-02-13] MEDS ORDERED: Amlodipine Bes2.5 MG PO (13:16)
[2023-02-13] MEDS ORDERED: Isosorbide Mono30 MG PO (13:22)
[2023-02-13] MEDS ORDERED: NYAMYC1513 TOP (13:31)
[2023-02-13] MEDS ORDERED: LOSARTAN POTAS100 M1 PO (13:34)
[2023-02-13 14:23] LABS: Albumin, Blood 2.9 g/dL (3.4-5.0); Anion Gap 3 mmol/L (6-16); Blood Urea Nitrogen 25 mg/dL (8-24); CO2, Blood 19 mmol/L (21-32); Chloride, Blood 117 mmol/L (98-108); Creatinine, Blood 1.25 mg/dL (0.40-1.00); Glomerular Filtration Rate 44 (60-); Glucose, Blood 106 mg/dL (70-99); Phosphorus, Blood 1.6 mg/dL (2.5-4.9); Potassium, Blood 4.8 mmol/L (3.5-5.5); Sodium, Blood 139 mmol/L (136-145)
[2023-02-13 15:21] LABS: Source, Urine Clean Catch
[2023-02-13 15:40] LABS: Appearance, Urine Turbid (Clear); Bilirubin, Urine Neg (Neg); Blood, Urine 3+ (Neg); Color, Urine Yellow (P-Yellow); Glucose Qualitative, Urine Neg (Neg); Ketones, Urine Neg (Neg); Leukocyte Esterase, Urine 3+ (Neg); Nitrite, Urine Pos (Neg); Protein, Urine 3+ (Neg); Specific Gravity, Urine 1.015 (1.003-1.022); Urobilinogen, Urine NORM (Normal)
[2023-02-13 15:48] LABS: White Blood Cells, Urine TNTC /hpf (0-5)
[2023-02-13 15:50] LABS: Bacteria Many /hpf; Squamous Epithelial Cells Rare /hpf (Few)
[2023-02-13 16:10] VITALS: BP 134/63
[2023-02-13 19:16] VITALS: BP 119/59
--- NOTE | 2023-02-13 19:35 | NUR ---
PT IS A DIRECT ADMIT FROM [place]. PT IS A&OX4 AND PLEASANT. 1 ASSIST WITH FWW. PT C/O GENERALIZED WEAKNESS. UA COLLECTED BY CLEAN CATCH. IV ABX STARTED. CALLS APPROPRIATELY. PT C/O DIARRHEA, ORDERS GIVEN FOR PRN IMODIUM. BED IN LOWEST POSITION AND CALL LIGHT IN REACH.
[2023-02-14 01:45] VITALS: BP 130/63
--- NOTE | 2023-02-14 04:18 | NUR ---
SHIFT SUMMARY BELEM IS ALERT AND ORIENTED AT THE START OF SHIFT, PLEASANT AND COOPERATIVE THROUGHOUT THE SHIFT. SHE RAN A LOW GRADE FEVER MOST OF THE SHIFT OF AROUND 100-101. DURING THE NIGHT SHE BEGAN TO FEEL ACHY AND WANTED SOMETHING TO RELIEVE FEVER SYMPTOMS. DOCTOR REYNA WAS CALLED AND AN VERBAL ORDER FOR TYLENOL WAS GIVEN. PT'S FEVER AND PAIN BOTH IMPROVED AFTER ADMINISTRATION AND THE PATIENT WAS ABLE TO SLEEP. THE PAITENT HAD NO OTHER COMPLAINTS AND IS RESTING IN BED WITH THE CALL LIGHT IN REACH. SHE IS MOSTLY INDEPENDENT IN THE ROOM BUT SOME SUPERVISION/ ASSISTANCE IS NECESSARY WHEN AMBULATING TO THE BATHROOM.
--- NOTE | 2023-02-14 05:23 | NUR ---
THIS SOLE RUFFER HAS REVIEWED AND AGREES WITH ALL NOTES AND ASSESSMENTS BY DOV CUMMINGS.
[2023-02-14 05:27] LABS: BASOPHILS ABSOLUTE AUTO 0.04 K/mm3 (0.00-0.23); BASOPHILS PERCENT AUTO 0 % (0-2); EOSINOPHILS ABSOLUTE AUTO 0.14 K/mm3 (0.00-0.68); EOSINOPHILS PERCENT AUTO 1 % (0-6); Hematocrit 30.5 % (33.0-51.0); IMMATURE GRAN ABSOLUTE AUTO 0.04 K/mm3 (0.00-0.10); IMMATURE GRAN PERCENT AUTO 0 % (0-1); LYMPHOCYTES ABSOLUTE AUTO 2.25 K/mm3 (0.84-5.20); LYMPHOCYTES PERCENT AUTO 19 % (21-46); MONOCYTES ABSOLUTE AUTO 1.78 K/mm3 (0.16-1.47); MONOCYTES PERCENT AUTO 15 % (4-13); Mean Corpuscular HGB 32.5 pg (26.0-34.0); Mean Corpuscular HGB Conc 32.8 g/dL (31.5-36.5); Mean Corpuscular Volume 99 fL (80-100); NEUTROPHILS ABSOLUTE AUTO 7.39 K/mm3 (1.96-9.15); NEUTROPHILS PERCENT AUTO 64 % (41-73); Platelet Count 281 K/mm3 (150-400); RDW Coefficient Variation 14.6 % (11.7-14.2); RDW Standard Deviation 53.3 fL (35.1-46.3); Red Blood Cell Count 3.08 M/mm3 (3.80-5.20); White Blood Cell Count 11.64 K/mm3 (4.00-11.30)
[2023-02-14 05:37] LABS: Albumin, Blood 2.8 g/dL (3.4-5.0); Anion Gap 4 mmol/L (6-16); Blood Urea Nitrogen 28 mg/dL (8-24); CO2, Blood 18 mmol/L (21-32); Calcium, Blood 9.1 mg/dL (8.5-10.1); Chloride, Blood 117 mmol/L (98-108); Creatinine, Blood 1.27 mg/dL (0.40-1.00); Glomerular Filtration Rate 43 (60-); Glucose, Blood 114 mg/dL (70-99); Magnesium, Blood 1.5 mg/dL (1.6-2.4); Potassium, Blood 4.3 mmol/L (3.5-5.5); Sodium, Blood 139 mmol/L (136-145)
[2023-02-14 08:12] VITALS: BP 136/62
[2023-02-14 13:55] VITALS: BP 131/68
--- NOTE | 2023-02-14 19:11 | NUR ---
SHIFT SUMMARY PT A&OX4 AND PLEASANT. PT RECIEVED SODIUM PHOSPHATE AND MAGNESIUM PHASPHATE AT START OF SHIFT. CONTINUING IV ABX. NO C/O PAIN TODAY. PT HAD ONE EPISODE OF INCONTINENCE IN THE AM WHILE SLEEPING BUT OTHERWISE HAS HAD NO OTHER ACCIDENTS. PT UP TO CHAIR FOR A FEW HOURS TODAY AND TOLERATED WELL. VSS AND PT HAS BEEN AFEBRILE TODAY. BED IN LOWEST POSITION AND CALL LIGHT IN REACH.
[2023-02-14 19:17] VITALS: BP 104/61
--- NOTE | 2023-02-15 04:19 | NUR ---
SHIFT SUMMARY BELEM IS ALERT AND FULLY ORIENTED, SHE IS PLEASANT AND COOPERATIVE, PT IS FEELING MUCH BETTER TONIGHT THAN PREVIOUS NIGHT, SHE HAD NO ACUTE CHANGES THIS SHIFT. SHE HAS BEEN CONTINENT AND INDEPENDENT IN HER ROOM AND HAD NO COMPLAINTS. SHE IS CURRENTLY RESTING IN BED AT LOWEST POSITION WITH HER CALL LIGHT IN REACH.
--- NOTE | 2023-02-15 05:04 | NUR ---
THIS ANNUAL CAMPAIGN MANAGER HAS REVIEWED AND AGREES WITH ALL NOTES AND ASSESSMENTS BY DOV CUMMINGS.
[2023-02-15 06:25] LABS: BASOPHILS ABSOLUTE AUTO 0.05 K/mm3 (0.00-0.23); BASOPHILS PERCENT AUTO 1 % (0-2); EOSINOPHILS ABSOLUTE AUTO 0.34 K/mm3 (0.00-0.68); EOSINOPHILS PERCENT AUTO 4 % (0-6); Hemoglobin 9.5 g/dL (11.5-16.0); IMMATURE GRAN ABSOLUTE AUTO 0.03 K/mm3 (0.00-0.10); IMMATURE GRAN PERCENT AUTO 0 % (0-1); LYMPHOCYTES ABSOLUTE AUTO 2.39 K/mm3 (0.84-5.20); LYMPHOCYTES PERCENT AUTO 27 % (21-46); MONOCYTES ABSOLUTE AUTO 1.15 K/mm3 (0.16-1.47); MONOCYTES PERCENT AUTO 13 % (4-13); Mean Corpuscular HGB 32.3 pg (26.0-34.0); Mean Corpuscular HGB Conc 32.8 g/dL (31.5-36.5); Mean Corpuscular Volume 99 fL (80-100); Mean Platelet Volume 9.6 fL (9.1-12.4); NEUTROPHILS ABSOLUTE AUTO 4.93 K/mm3 (1.96-9.15); NEUTROPHILS PERCENT AUTO 56 % (41-73); Platelet Count 292 K/mm3 (150-400); RDW Coefficient Variation 14.6 % (11.7-14.2); RDW Standard Deviation 53.3 fL (35.1-46.3); Red Blood Cell Count 2.94 M/mm3 (3.80-5.20); White Blood Cell Count 8.89 K/mm3 (4.00-11.30)
[2023-02-15 06:46] LABS: Albumin, Blood 2.7 g/dL (3.4-5.0); Anion Gap 7 mmol/L (6-16); Blood Urea Nitrogen 22 mg/dL (8-24); Bun/Creatinine Ratio 21.4 (12.0-20.0); CO2, Blood 18 mmol/L (21-32); Calcium, Blood 8.9 mg/dL (8.5-10.1); Chloride, Blood 115 mmol/L (98-108); Creatinine, Blood 1.03 mg/dL (0.40-1.00); Glomerular Filtration Rate 55 (60-); Glucose, Blood 89 mg/dL (70-99); Phosphorus, Blood 2.9 mg/dL (2.5-4.9); Potassium, Blood 4.4 mmol/L (3.5-5.5); Sodium, Blood 140 mmol/L (136-145)
[2023-02-15 07:36] VITALS: BP 131/70
[2023-02-15] MEDS ORDERED: AMOX875 PO (11:45)
--- NOTE | 2023-02-15 15:20 | NUR ---
DISCHARGE SUMMARY PATIENT WITH NO ACUTE EVENTS TODAY. SHE DENIES BURNING WITH URINATION, STATES SHE STILL HAS FREQUENCY BUT GOES EVERY TIME. PATIENT MEDICATION AND EDUCATION PRINTOUTS PRINTED AND REVIEWED WITH PATIENT AND , IV REMOVED, CONSENT SIGNED. PATIENT LEFT FLOOR AT 1403 VIA WHEELCHAIR WITH JUAN LINARES TO BE RECIEVED BY AT MAIN FLOOR ENTRANCE WITH PRIVATE TRANSPORT.
== END 2023-02-15 14:44 | disposition home or self-care (01) | DRG 872 ==
LOC: MEDS 11:57
PROVIDERS: ADMIT Family Medicine
DX: A41.9 Sepsis, unspecified organism (principal); I13.0 Hypertensive heart and chronic kidney disease with heart failure and stage 1 through stage 4 chronic kidney disease, or unspecified chronic kidney disease; I50.32 Chronic diastolic (congestive) heart failure; N17.9 Acute kidney failure, unspecified; N12 Tubulo-interstitial nephritis, not specified as acute or chronic; N18.9 Chronic kidney disease, unspecified; I95.9 Hypotension, unspecified; E03.9 Hypothyroidism, unspecified; B96.20 Unspecified Escherichia coli [E. coli] as the cause of diseases classified elsewhere; B95.2 Enterococcus as the cause of diseases classified elsewhere; Z88.0 Allergy status to penicillin; Z88.5 Allergy status to narcotic agent; Z88.8 Allergy status to other drugs, medicaments and biological substances; Z79.899 Other long term (current) drug therapy; Z79.82 Long term (current) use of aspirin; Z79.02 Long term (current) use of antithrombotics/antiplatelets; Z79.890 Hormone replacement therapy
CPT/HCPCS: 36415; 80069; 81001; 83605; 83735; 85025; 87040; 87077; 87086; 87186; 94760; A9270; J0696; J1644; J3475; J7050; J7060

== ENCOUNTER → 2023-02-13 | Outpatient (CLI) | payer OTHER ==
[~2023-02-13] MED LIST changes: +AMLODIPINE BESYL5 MG PO; +AMOX875 PO; +Amlodipine Bes2.5 MG PO; +Benadryl 50 mg50 MG PO; +NYAMYC1513 TOP; +Pepcid20 MG PO
[2023-02-13 10:11] LABS: BASOPHILS ABSOLUTE AUTO 0.05 K/mm3 (0.00-0.23); BASOPHILS PERCENT AUTO 0 % (0-2); EOSINOPHILS ABSOLUTE AUTO 0.04 K/mm3 (0.00-0.68); EOSINOPHILS PERCENT AUTO 0 % (0-6); Hematocrit 39.1 % (33.0-51.0); Hemoglobin 12.6 g/dL (11.5-16.0); IMMATURE GRAN ABSOLUTE AUTO 0.08 K/mm3 (0.00-0.10); IMMATURE GRAN PERCENT AUTO 1 % (0-1); LYMPHOCYTES ABSOLUTE AUTO 1.17 K/mm3 (0.84-5.20); LYMPHOCYTES PERCENT AUTO 9 % (21-46); MONOCYTES PERCENT AUTO 10 % (4-13); Mean Corpuscular HGB 32.6 pg (26.0-34.0); Mean Corpuscular HGB Conc 32.2 g/dL (31.5-36.5); Mean Corpuscular Volume 101 fL (80-100); Mean Platelet Volume 9.7 fL (9.1-12.4); NEUTROPHILS PERCENT AUTO 81 % (41-73); Platelet Count 324 K/mm3 (150-400); RDW Coefficient Variation 14.9 % (11.7-14.2); RDW Standard Deviation 55.1 fL (35.1-46.3); Red Blood Cell Count 3.86 M/mm3 (3.80-5.20); White Blood Cell Count 13.74 K/mm3 (4.00-11.30)
[2023-02-13 10:36] LABS: Albumin, Blood 3.6 g/dL (3.4-5.0); Albumin/Globulin Ratio 0.8 (0.8-1.8); Bilirubin, Total 0.5 mg/dL (0.1-1.0); Bun/Creatinine Ratio 16.7 (12.0-20.0); Calcium, Blood 10.2 mg/dL (8.5-10.1); Creatinine, Blood 1.62 mg/dL (0.40-1.00); Globulin, Blood 4.5 g/dL (2.2-4.0); Potassium, Blood 4.4 mmol/L (3.5-5.5); Total Protein, Blood 8.1 g/dL (6.4-8.2)
== END | disposition home or self-care (01) ==
LOC: LAB SHORT 09:48 → LAB 09:48
PROVIDERS: Chiropractor
DX: I95.9 Hypotension, unspecified (principal)
CPT/HCPCS: 80053; 83605; 85025; 87040

== ENCOUNTER 2023-05-31 02:04 | Emergency (ER) | payer OTHER ==
[~2023-05-31] VITALS: Ht 162.6 cm; Wt 59.0 kg
[~2023-05-31 02:04] MED LIST changes: +AMOX875 PO; +Amlodipine Bes2.5 MG PO; +NYAMYC1513 TOP
[2023-05-31 02:23] LABS: BASOPHILS ABSOLUTE AUTO 0.05 K/mm3 (0.00-0.23); BASOPHILS PERCENT AUTO 1 % (0-2); EOSINOPHILS PERCENT AUTO 4 % (0-6); Hematocrit 42.9 % (33.0-51.0); Hemoglobin 13.8 g/dL (11.5-16.0); IMMATURE GRAN ABSOLUTE AUTO 0.02 K/mm3 (0.00-0.10); IMMATURE GRAN PERCENT AUTO 0 % (0-1); LYMPHOCYTES ABSOLUTE AUTO 2.32 K/mm3 (0.84-5.20); LYMPHOCYTES PERCENT AUTO 33 % (21-46); MONOCYTES ABSOLUTE AUTO 0.53 K/mm3 (0.16-1.47); MONOCYTES PERCENT AUTO 8 % (4-13); Mean Corpuscular HGB 31.8 pg (26.0-34.0); Mean Corpuscular HGB Conc 32.2 g/dL (31.5-36.5); Mean Corpuscular Volume 99 fL (80-100); Mean Platelet Volume 9.8 fL (9.1-12.4); NEUTROPHILS ABSOLUTE AUTO 3.89 K/mm3 (1.96-9.15); NEUTROPHILS PERCENT AUTO 55 % (41-73); Platelet Count 281 K/mm3 (150-400); RDW Coefficient Variation 13.9 % (11.7-14.2); RDW Standard Deviation 50.8 fL (35.1-46.3); Red Blood Cell Count 4.34 M/mm3 (3.80-5.20); White Blood Cell Count 7.11 K/mm3 (4.00-11.30)
[2023-05-31 02:41] LABS: Albumin, Blood 3.9 g/dL (3.4-5.0); Albumin/Globulin Ratio 1.1 (0.8-1.8); Bilirubin, Total 0.3 mg/dL (0.1-1.0); Bun/Creatinine Ratio 24.6 (12.0-20.0); Calcium, Blood 9.2 mg/dL (8.5-10.1); Creatinine, Blood 1.34 mg/dL (0.40-1.00); Globulin, Blood 3.6 g/dL (2.2-4.0); Magnesium, Blood 1.6 mg/dL (1.6-2.4); Phosphorus, Blood 3.9 mg/dL (2.5-4.9); Potassium, Blood 3.6 mmol/L (3.5-5.5); Total Protein, Blood 7.5 g/dL (6.4-8.2)
[2023-05-31 02:45] LABS: D-Dimer, Quantitative 1.78 mg/L FEU (0.00-0.52); International Normalized Ratio 0.97; Prothrombin Time Results 10.2 Sec (9.7-11.5)
[2023-05-31 06:00] VITALS: BP 147/89
== END 2023-05-31 06:15 | disposition home or self-care (01) ==
LOC: ER 02:04
PROVIDERS: Emergency Medicine
DX: R07.2 Precordial pain (principal); I11.0 Hypertensive heart disease with heart failure; I50.9 Heart failure, unspecified; J44.9 Chronic obstructive pulmonary disease, unspecified; E03.9 Hypothyroidism, unspecified; I25.2 Old myocardial infarction; Z85.3 Personal history of malignant neoplasm of breast; Z95.9 Presence of cardiac and vascular implant and graft, unspecified; Z87.891 Personal history of nicotine dependence; Z79.82 Long term (current) use of aspirin; Z79.02 Long term (current) use of antithrombotics/antiplatelets; Z79.899 Other long term (current) drug therapy; Z88.0 Allergy status to penicillin; Z88.5 Allergy status to narcotic agent; Z88.6 Allergy status to analgesic agent
CPT/HCPCS: 71046; 71260; 80053; 83735; 83880; 84100; 84484; 85025; 85379; 85610; 85730; 93005; 93010; 99285-25; Q9967

== ENCOUNTER 2024-02-14 21:20 | Emergency (ER) | payer OTHER ==
[~2024-02-14] VITALS: Ht 162.6 cm; Wt 63.0 kg
[~2024-02-14 21:20] MED LIST changes: +CEPH500 PO
[2024-02-14 22:13] LABS: BASOPHILS ABSOLUTE AUTO 0.04 K/mm3 (0.00-0.23); BASOPHILS PERCENT AUTO 0 % (0-2); EOSINOPHILS ABSOLUTE AUTO 0.04 K/mm3 (0.00-0.68); EOSINOPHILS PERCENT AUTO 0 % (0-6); Hematocrit 36.9 % (33.0-51.0); Hemoglobin 12.5 g/dL (11.5-16.0); IMMATURE GRAN ABSOLUTE AUTO 0.07 K/mm3 (0.00-0.10); IMMATURE GRAN PERCENT AUTO 1 % (0-1); LYMPHOCYTES ABSOLUTE AUTO 1.48 K/mm3 (0.84-5.20); LYMPHOCYTES PERCENT AUTO 10 % (21-46); MONOCYTES ABSOLUTE AUTO 1.64 K/mm3 (0.16-1.47); MONOCYTES PERCENT AUTO 12 % (4-13); Mean Corpuscular HGB 32.4 pg (26.0-34.0); Mean Corpuscular HGB Conc 33.9 g/dL (31.5-36.5); Mean Corpuscular Volume 96 fL (80-100); Mean Platelet Volume 9.7 fL (9.1-12.4); NEUTROPHILS ABSOLUTE AUTO 10.91 K/mm3 (1.96-9.15); NEUTROPHILS PERCENT AUTO 77 % (41-73); Platelet Count 273 K/mm3 (150-400); RDW Coefficient Variation 13.9 % (11.7-14.2); RDW Standard Deviation 48.4 fL (35.1-46.3); Red Blood Cell Count 3.86 M/mm3 (3.80-5.20); White Blood Cell Count 14.18 K/mm3 (4.00-11.30)
[2024-02-14 22:33] LABS: Albumin, Blood 3.4 g/dL (3.4-5.0); Albumin/Globulin Ratio 0.8 (0.8-1.8); Bilirubin, Total 0.8 mg/dL (0.1-1.0); Bun/Creatinine Ratio 23.5 (12.0-20.0); Creatinine, Blood 1.87 mg/dL (0.40-1.00); Potassium, Blood 3.5 mmol/L (3.5-5.5); Total Protein, Blood 7.4 g/dL (6.4-8.2)
[2024-02-15] MEDS ORDERED: NS 1,000 ML IV SCH (01:20)
[2024-02-15 01:47] LABS: Source, Urine Clean Catch
[2024-02-15 01:59] LABS: Appearance, Urine Cloudy (Clear); Bilirubin, Urine Neg (Neg); Blood, Urine 5+ (Neg); Color, Urine Red (P-Yellow); Glucose Qualitative, Urine Neg (Neg); Ketones, Urine Neg (Neg); Leukocyte Esterase, Urine 3+ (Neg); Nitrite, Urine Pos (Neg); Protein, Urine 3+ (Neg); Specific Gravity, Urine 1.015 (1.003-1.022); Urobilinogen, Urine 1+ (Normal)
[2024-02-15 02:13] LABS: Bacteria Many /hpf; Red Blood Cells, Urine TNTC /hpf (0-2); Squamous Epithelial Cells Few /hpf (Few); White Blood Cells, Urine 50-100 /hpf (0-5)
[2024-02-15] MEDS ORDERED: CefTRIAXone Sodium 1,000 MG in NS 50 ML IV ONE (03:45)
[2024-02-15 04:30] VITALS: BP 126/62
== END 2024-02-15 05:00 | disposition home or self-care (01) ==
LOC: ER 21:20
PROVIDERS: Emergency Medicine
DX: N39.0 Urinary tract infection, site not specified (principal); R79.89 Other specified abnormal findings of blood chemistry; Z87.891 Personal history of nicotine dependence; J44.9 Chronic obstructive pulmonary disease, unspecified; E03.9 Hypothyroidism, unspecified; I25.2 Old myocardial infarction; I11.0 Hypertensive heart disease with heart failure; I50.9 Heart failure, unspecified; Z79.02 Long term (current) use of antithrombotics/antiplatelets; Z79.82 Long term (current) use of aspirin; Z79.899 Other long term (current) drug therapy; Z88.5 Allergy status to narcotic agent; Z88.0 Allergy status to penicillin
CPT/HCPCS: 51701; 51798; 74177; 80053; 81001; 85025; 96361; 96365-59; 99284-25; J0696; J7030; Q9967

== ENCOUNTER 2024-03-17 16:23 | Observation (INO) | payer OTHER ==
[~2024-03-17] VITALS: Ht 162.6 cm; Wt 63.1 kg
[2024-03-17 17:21] LABS: BASOPHILS PERCENT AUTO 1 % (0-2); EOSINOPHILS ABSOLUTE AUTO 0.23 K/mm3 (0.00-0.68); EOSINOPHILS PERCENT AUTO 2 % (0-6); Hematocrit 44.9 % (33.0-51.0); Hemoglobin 14.1 g/dL (11.5-16.0); IMMATURE GRAN ABSOLUTE AUTO 0.07 K/mm3 (0.00-0.10); IMMATURE GRAN PERCENT AUTO 1 % (0-1); LYMPHOCYTES PERCENT AUTO 14 % (21-46); MONOCYTES ABSOLUTE AUTO 0.59 K/mm3 (0.16-1.47); MONOCYTES PERCENT AUTO 5 % (4-13); Mean Corpuscular HGB 32.4 pg (26.0-34.0); Mean Corpuscular HGB Conc 31.4 g/dL (31.5-36.5); Mean Corpuscular Volume 103 fL (80-100); Mean Platelet Volume 9.9 fL (9.1-12.4); NEUTROPHILS ABSOLUTE AUTO 10.27 K/mm3 (1.96-9.15); NEUTROPHILS PERCENT AUTO 78 % (41-73); Platelet Count 246 K/mm3 (150-400); RDW Coefficient Variation 14.2 % (11.7-14.2); RDW Standard Deviation 53.7 fL (35.1-46.3); Red Blood Cell Count 4.35 M/mm3 (3.80-5.20); White Blood Cell Count 13.16 K/mm3 (4.00-11.30)
[2024-03-17 17:45] LABS: Albumin, Blood 3.8 g/dL (3.4-5.0); Bilirubin, Total 0.5 mg/dL (0.1-1.0); Bun/Creatinine Ratio 28.8 (12.0-20.0); Calcium, Blood 9.7 mg/dL (8.5-10.1); Creatinine, Blood 1.18 mg/dL (0.40-1.00); Globulin, Blood 3.9 g/dL (2.2-4.0); Total Protein, Blood 7.7 g/dL (6.4-8.2)
[2024-03-17] MEDS ORDERED: FLU VACC TS2024-25(6MOS UP)/PF 45 MCG/0.5 ML SYRINGE IM SCH (23:05)
[2024-03-18] VITALS (8 sets, daily range): BP systolic 117–176; BP diastolic 61–96
[2024-03-18 06:10] LABS: BASOPHILS PERCENT AUTO 1 % (0-2); EOSINOPHILS ABSOLUTE AUTO 0.29 K/mm3 (0.00-0.68); EOSINOPHILS PERCENT AUTO 3 % (0-6); Hematocrit 40.3 % (33.0-51.0); Hemoglobin 13.5 g/dL (11.5-16.0); IMMATURE GRAN ABSOLUTE AUTO 0.03 K/mm3 (0.00-0.10); IMMATURE GRAN PERCENT AUTO 0 % (0-1); LYMPHOCYTES ABSOLUTE AUTO 2.83 K/mm3 (0.84-5.20); LYMPHOCYTES PERCENT AUTO 25 % (21-46); MONOCYTES ABSOLUTE AUTO 1.13 K/mm3 (0.16-1.47); MONOCYTES PERCENT AUTO 10 % (4-13); Mean Corpuscular HGB 32.6 pg (26.0-34.0); Mean Corpuscular HGB Conc 33.5 g/dL (31.5-36.5); Mean Corpuscular Volume 97 fL (80-100); Mean Platelet Volume 9.9 fL (9.1-12.4); NEUTROPHILS ABSOLUTE AUTO 6.97 K/mm3 (1.96-9.15); NEUTROPHILS PERCENT AUTO 61 % (41-73); Platelet Count 281 K/mm3 (150-400); RDW Coefficient Variation 14.2 % (11.7-14.2); RDW Standard Deviation 50.5 fL (35.1-46.3); Red Blood Cell Count 4.14 M/mm3 (3.80-5.20); White Blood Cell Count 11.35 K/mm3 (4.00-11.30)
[2024-03-18 06:27] LABS: Albumin, Blood 3.7 g/dL (3.4-5.0); Albumin/Globulin Ratio 1.1 (0.8-1.8); Bilirubin, Total 0.3 mg/dL (0.1-1.0); Bun/Creatinine Ratio 36.4 (12.0-20.0); Calcium, Blood 9.7 mg/dL (8.5-10.1); Creatinine, Blood 1.18 mg/dL (0.40-1.00); Globulin, Blood 3.5 g/dL (2.2-4.0); Potassium, Blood 3.7 mmol/L (3.5-5.5); Total Protein, Blood 7.2 g/dL (6.4-8.2)
--- NOTE | 2024-03-18 06:45 | NUR ---
ASSUMPTION OF CARE/TRANSFER TO PCU PT TRANSFERED TO PCU AT 0550. PT TRANSFERED FROM ER [facility] TO PCU BED VIA SBA. PT ALERT AND ORIENTED X4. PT ANSWERS QUESITONS APPROPRIATELY, FOLLOWS DIRECITON WHEN PROMPTED AND IS ABLE TO MAKE HER NEEDS KNOWN. PT MOVES EXTREMITIES EQUALLY BILATERALLY. HR 70-80'S SINUS, MAP >65. PT DENIES CP/PRESSURE. PT STATES THAT SHE HAS NOT EXPERIENCED CHEST PAIN SINCE BEING IN THE AMBULANCE. PT ON 2LPM VIA NC, OXYGEN SATURATION >95%, PT USES 1L VIA NC AT HOME NEEDED. PT LUNG SOUNDS CLEAR. ABDOMEN SOFT, BOWEL TONES ACTIVE IN ALL FOUR QUADRANTS. PT DENIES N/V. ATTENDS IN PLACE. PIV IN PLACE TO LEFT HAND, SL. PT HAS HISTORY OF MASTECTOMY TO LEFT BREAST. SMALL BUMP NOTED ON THE TOP OF HER LEFT FOOT. PT STATES THAT THE BUMP HAS BEEN THERE A LONG TIME, PICTURE IN CHART. BED IN LOWEST POSITON, CALL LIGHT WITHIN REACH, CARE CONTIUES.
--- NOTE | 2024-03-18 08:27 | NUR ---
NURSE NOTE ASSUMED CARE AT 0715. PT CURRENTLY SITTING UP IN BED WATCHING TV, VSS, PT A+O X4. OFFERED FLU SHOT TO THE PATIENT SHE STATED SHE ALREADY GOT ONE. CALL LIGHT IN REACH.
[2024-03-18] MEDS ORDERED: Heparin Sodium,Porcine 5,000 UNIT/0.5 ML SDV SC SCH (09:00)
--- NOTE | 2024-03-18 09:56 | NUR ---
NURSE NOTE ADDMISTION ASSESMENT COMPLETED, ON SKIN ASSESSMENT NOTICED RED AREA ON BUTTOCK W/ NO BROKEN SKIN, PLACED PILLOW UNDER RIGHT HIP. TITRATED OXYGEN DOWN TO 1 LITER AT THIS TIME. PT DENIES CHEST PAIN OR PRESSURE AT THIS TIME. CALL LIGHT IN REACH.
--- NOTE | 2024-03-18 10:40 | NUR ---
"Spiritual Care Visit | Pt. referral Pt. is awake in bed when she welcomes my visit. While Pt. verbalized that she is not a believer, she welcomed my visit. Facilitated a short life review. Listened with interest and empathy. Pt. verbalized gratitude for the spiritual care visit."
[2024-03-18] MEDS ORDERED: LEVSOD75 PO (15:05)
[2024-03-18] MEDS ORDERED: ALLO100 PO (15:05)
[2024-03-18] MEDS ORDERED: TOLT4 PO (15:06)
[2024-03-18] MEDS ORDERED: METO100ER PO (15:06)
[2024-03-18] MEDS ORDERED: CLOP75 PO (15:06)
[2024-03-18] MEDS ORDERED: HYDCHL12.5 PO (15:07)
[2024-03-18] MEDS ORDERED: QUET25 PO (15:07)
[2024-03-18] MEDS ORDERED: ATOR80 PO (15:08)
--- NOTE | 2024-03-18 18:05 | NUR ---
SHIFT SUMMARY PT IS A+O X4, VSS, PT ON ROOM AIR SATURATING AT 97%. PT ABLE TO MAKE NEEDS KNOWN, SBA TO THE BSC TO VOID, WEARING AN ATTENDS. PT SITTING UP IN BED FOR DINNER, PT HAS SPENT HER DAY WATCHING TV. PT IS ABLE TO MAKE HER NEEDS KNOWN. PT HOME MEDICATIONS RETERIVED FROM SPOUSE AND MED REC UPDATED. PT AWAITING A PE STUDY AT THIS TIME. CALL LIGHT IN REACH WILL CONTINUE TO MONITOR.
[2024-03-18] MEDS ORDERED: Acetaminophen 325 MG TABLET PO PRN (18:35)
[2024-03-18] MEDS ORDERED: QUEtiapine Fumarate 25 MG Tab PO SCH (21:00)
[2024-03-18] MEDS ORDERED: Atorvastatin 40 MG Tab PO SCH (21:00)
--- NOTE | 2024-03-18 21:13 | NUR ---
ASSUMPTION OF CARE AFTER RECEIVING REPORT FROM ANJELICA RN, THIS RN ASSUMED CARE AT APPROX 1915. PATIENT ALERT AND ORIENTED X4. COMMUNICATES NEEDS EFFECTIVELY. PERRLA. MOVES ALL EXTREMITIES EQUALLY. AMBULATES WITH SBA NEEDED FOR LINE, DEVICE MANAGEMENT. IS REPORTING 10/18 HEADACHE - DID RECEIVE PO TYLENOL PER EMAR PRIOR TO ASSUMPTION OF CARE. PATIENT REPORTS THAT IT IS RELATED TO DIFFICULTY SLEEPING THE NIGHT PRIOR - HOME SEROQUEL RESTARTED THIS EVENING. TELEMETRY SHOWING SINUS 80s-90s. BP STABLE, SBP 110s. MAP >65. DENIES CHEST PAIN, PRESSURE. ON ROOM AIR WHILE AWAKE, SATs >90%. DOES USE 1-2L VIA NC WITH SLEEP. RR EVEN, UNLABORED AT REST. MILD SHORTNESS OF BREATH WITH MOBILITY. BASELINE URINARY INCONTINENCE - CHANGES ATTENDS INDEPENDENTLY NEEDED. PATIENT CURRENTLY OUT OF ROOM COMPLETING CT PE STUDY.
--- NOTE | 2024-03-18 21:33 | NUR ---
PATIENT BACK TO ROOM FOLLOWING CT PE STUDY. CALL LIGHT WITHIN REACH.
[2024-03-19 03:58] VITALS: BP 171/89
[2024-03-19 04:15] VITALS: BP 164/81
[2024-03-19 04:29] LABS: BASOPHILS ABSOLUTE AUTO 0.06 K/mm3 (0.00-0.23); BASOPHILS PERCENT AUTO 1 % (0-2); EOSINOPHILS ABSOLUTE AUTO 0.42 K/mm3 (0.00-0.68); EOSINOPHILS PERCENT AUTO 6 % (0-6); Hematocrit 37.8 % (33.0-51.0); Hemoglobin 12.4 g/dL (11.5-16.0); IMMATURE GRAN ABSOLUTE AUTO 0.02 K/mm3 (0.00-0.10); IMMATURE GRAN PERCENT AUTO 0 % (0-1); LYMPHOCYTES ABSOLUTE AUTO 2.61 K/mm3 (0.84-5.20); LYMPHOCYTES PERCENT AUTO 36 % (21-46); MONOCYTES ABSOLUTE AUTO 0.68 K/mm3 (0.16-1.47); MONOCYTES PERCENT AUTO 9 % (4-13); Mean Corpuscular HGB 32.1 pg (26.0-34.0); Mean Corpuscular HGB Conc 32.8 g/dL (31.5-36.5); Mean Corpuscular Volume 98 fL (80-100); Mean Platelet Volume 10.1 fL (9.1-12.4); NEUTROPHILS ABSOLUTE AUTO 3.46 K/mm3 (1.96-9.15); NEUTROPHILS PERCENT AUTO 48 % (41-73); Platelet Count 238 K/mm3 (150-400); RDW Coefficient Variation 14.6 % (11.7-14.2); RDW Standard Deviation 52.1 fL (35.1-46.3); Red Blood Cell Count 3.86 M/mm3 (3.80-5.20); White Blood Cell Count 7.25 K/mm3 (4.00-11.30)
[2024-03-19 04:30] VITALS: BP 149/97
[2024-03-19 05:10] LABS: Bun/Creatinine Ratio 39.3 (12.0-20.0); Calcium, Blood 9.3 mg/dL (8.5-10.1); Creatinine, Blood 0.97 mg/dL (0.40-1.00); Potassium, Blood 3.7 mmol/L (3.5-5.5)
--- NOTE | 2024-03-19 05:18 | NUR ---
SHIFT SUMMARY NO ACUTE EVENTS SINCE ASSUMPTION OF CARE NOTE. PATIENT SLEPT T/O NIGHT, EASILY AROUSABLE WITH VERBAL STIMULI. TELEMETRY SHOWING SINUS 70s. BP STABLE. SBP ELEVATED THIS MORNING 170s. HAS SINCE LOWERED SBP 140s WITHOUT INTERVENTION. PATIENT TO RECEIVE PO METOPROLOL THIS MORNING. DENIES CHEST PAIN, PRESSURE. PLACED ON 2L VIA NC WITH SLEEP, SATs >90%. RR EVEN, UNLABORED. CT PE STUDY COMPLETED. VOIDING. NO BM THIS SHIFT. REPOSITIONS HERSELF INDEPENDENTLY IN BED. CALL LIGHT IN REACH. WILL CONTINUE TO MONITOR AND REPORT TO ONCOMING RN.
[2024-03-19] MEDS ORDERED: Levothyroxine Sodium 0.075 MG Tab PO SCH (06:00)
[2024-03-19] MEDS ORDERED: Trospium Chloride 20 MG Tab PO SCH (07:30)
[2024-03-19] MEDS ORDERED: Clopidogrel Bisulfate 75 MG Tab PO SCH (09:00)
[2024-03-19] MEDS ORDERED: Metoprolol Succinate 50 MG TABCR PO SCH (09:00)
[2024-03-19] MEDS ORDERED: HydroCHLOROthiazide 25 mg Tab PO SCH (09:00)
[2024-03-19] MEDS ORDERED: Allopurinol 100 MG Tab PO SCH (09:00)
[2024-03-19 09:42] VITALS: BP 158/86
[2024-03-19 11:23] VITALS: BP 158/72
== END 2024-03-19 11:30 | disposition home health service (06) ==
LOC: ER 16:23 → ERHOLD 16:24 → PCU 03-18 05:47
PROVIDERS: Emergency Medicine; Family Medicine; Internal Medicine; ADMIT Internal Medicine
DX: I25.118 Atherosclerotic heart disease of native coronary artery with other forms of angina pectoris (principal); E03.9 Hypothyroidism, unspecified; I13.0 Hypertensive heart and chronic kidney disease with heart failure and stage 1 through stage 4 chronic kidney disease, or unspecified chronic kidney disease; N18.30 Chronic kidney disease, stage 3 unspecified; I50.30 Unspecified diastolic (congestive) heart failure; F31.9 Bipolar disorder, unspecified; N32.81 Overactive bladder; J44.9 Chronic obstructive pulmonary disease, unspecified; I25.2 Old myocardial infarction; Z99.81 Dependence on supplemental oxygen; Z85.3 Personal history of malignant neoplasm of breast; Z87.891 Personal history of nicotine dependence; Z88.0 Allergy status to penicillin; Z88.5 Allergy status to narcotic agent; Z88.8 Allergy status to other drugs, medicaments and biological substances; Z79.899 Other long term (current) drug therapy; E78.5 Hyperlipidemia, unspecified; D72.829 Elevated white blood cell count, unspecified
CPT/HCPCS: 36415; 71046; 71260; 80048; 80053; 84484; 85025; 85379; 93005; 93010; 96372; 99285-25; A9270; G0378; J1644; Q9967

== ENCOUNTER 2024-05-31 01:36 | Emergency (ER) | payer OTHER ==
[~2024-05-31] VITALS: Ht 157.5 cm; Wt 63.5 kg
[~2024-05-31 01:36] MED LIST changes: +HYDCHL12.5 PO; +METO100ER PO; +TOLT4 PO
[2024-05-31] MEDS ORDERED: LORazepam 1 MG Tab PO ONE (01:45)
[2024-05-31 02:18] LABS: BASOPHILS ABSOLUTE AUTO 0.08 K/mm3 (0.00-0.23); BASOPHILS PERCENT AUTO 1 % (0-2); EOSINOPHILS ABSOLUTE AUTO 0.25 K/mm3 (0.00-0.68); EOSINOPHILS PERCENT AUTO 2 % (0-6); Hematocrit 37.8 % (33.0-51.0); Hemoglobin 12.2 g/dL (11.5-16.0); IMMATURE GRAN ABSOLUTE AUTO 0.04 K/mm3 (0.00-0.10); IMMATURE GRAN PERCENT AUTO 0 % (0-1); LYMPHOCYTES ABSOLUTE AUTO 1.84 K/mm3 (0.84-5.20); LYMPHOCYTES PERCENT AUTO 15 % (21-46); MONOCYTES ABSOLUTE AUTO 0.58 K/mm3 (0.16-1.47); MONOCYTES PERCENT AUTO 5 % (4-13); Mean Corpuscular HGB 33.8 pg (26.0-34.0); Mean Corpuscular HGB Conc 32.3 g/dL (31.5-36.5); Mean Corpuscular Volume 105 fL (80-100); Mean Platelet Volume 10.1 fL (9.1-12.4); NEUTROPHILS ABSOLUTE AUTO 9.53 K/mm3 (1.96-9.15); NEUTROPHILS PERCENT AUTO 78 % (41-73); NRBC ABSOLUTE 0.02 K/mm3 (0.00-0.02); NRBC Auto 0.2 /100 WBC (0.0-0.2); Platelet Count 268 K/mm3 (150-400); RDW Standard Deviation 58.6 fL (35.1-46.3); Red Blood Cell Count 3.61 M/mm3 (3.80-5.20); White Blood Cell Count 12.32 K/mm3 (4.00-11.30)
[2024-05-31 02:53] LABS: Albumin, Blood 3.6 g/dL (3.4-5.0); Bilirubin, Total 0.2 mg/dL (0.1-1.0); Bun/Creatinine Ratio 31.2 (12.0-20.0); Calcium, Blood 10.4 mg/dL (8.5-10.1); Creatinine, Blood 1.38 mg/dL (0.40-1.00); Globulin, Blood 3.6 g/dL (2.2-4.0); Total Protein, Blood 7.2 g/dL (6.4-8.2)
[2024-05-31 03:30] VITALS: BP 134/61
== END 2024-05-31 03:57 | disposition home or self-care (01) ==
LOC: ER 01:36
PROVIDERS: Emergency Medicine
DX: R07.89 Other chest pain (principal); I11.0 Hypertensive heart disease with heart failure; I50.9 Heart failure, unspecified; E03.9 Hypothyroidism, unspecified; I25.2 Old myocardial infarction; J44.9 Chronic obstructive pulmonary disease, unspecified; Z87.891 Personal history of nicotine dependence; Z79.02 Long term (current) use of antithrombotics/antiplatelets; Z79.899 Other long term (current) drug therapy; Z88.0 Allergy status to penicillin; Z88.5 Allergy status to narcotic agent
CPT/HCPCS: 71045; 80053; 83880; 84484; 85025; 93005; 93010; 99285-25; A9270